=== PATIENT | female | born 1990 | race Caucasian/White ===

== ENCOUNTER 2023-01-22 07:14 | Outpatient (REF) | payer OTHER, SELFPAY ==
[2023-01-22 11:23] LABS: MANUAL DIFF FLAG NO
[2023-01-22 11:45] LABS: Basophils Absolute Auto 0.1 X10*3/uL (0.0-0.2); Basophils Percent Auto 1.3 % (0-2); Eosinophils Absolute Auto 0.1 X10*3/uL (0.0-0.4); Eosinophils Percent Auto 2.1 % (0-4); Hematocrit 35.3 % (37.0-47.0); Hemoglobin 11.4 g/dl (12.0-16.0); Imm Gran Abs Auto 0.01 X10*3/uL (0.00-0.03); Imm Gran Pct Auto 0.2 % (0.0-0.4); Lymphocytes Absolute Auto 1.2 X10*3/uL (1.2-4.9); Lymphocytes Percent Auto 23.6 % (20-40); Mean Corpuscular HGB Conc 32.3 g/dl (31.0-35.0); Mean Corpuscular Hemoglobin 29.5 pg (27.0-33.0); Mean Corpuscular Volume 91.2 fL (80.0-98.0); Mean Platelet Volume 10.3 fL (9.4-12.3); Monocytes Absolute Auto 0.4 X10*3/uL (0.1-1.2); Monocytes Percent Auto 7.1 % (2-11); Neutrophils Absolute Auto 3.4 x10*3/uL (2.0-8.3); Neutrophils Percent Auto 65.7 % (45-73); Platelet Count 298 X10*3/uL (160-400); Red Blood Count 3.87 X10*6/uL (4.20-5.50); Red Cell Distribution Width 12.9 % (11.0-16.0); White Blood Count 5.2 X10*3/uL (4.8-10.8)
[2023-01-22 11:50] LABS: Alanine Aminotransferase 7 U/L (0-31); Albumin Level 4.1 g/dL (3.5-5.0); Alkaline Phosphatase 50 U/L (39-117); Anion Gap 8 (12-20); Aspartate Amino Transferase 11 U/L (5-31); Bilirubin Total 0.6 mg/dL (0.0-1.0); Blood Urea Nitrogen 11 mg/dL (9-16); Calcium 9.1 mg/dL (8.4-10.2); Carbon Dioxide 27 mmol/L (22-29); Chloride 109 mmol/L (96-108); Cholesterol 161 mg/dL; Estimated Glomerular Filt Rate > 60; Glucose Fasting 84 mg/dL (60-99); HDL Cholesterol 65 mg/dL; LDL Cholesterol Calculated 83 mg/dl; Potassium 4.9 mmol/L (3.3-5.1); Sodium 139 mmol/L (135-145); Total Protein 6.4 g/dL (6.5-8.0); Triglycerides 68 mg/dL
== END 2023-01-22 07:15 | disposition home or self-care (01) ==
LOC: HO.HMGCLDS 07:14
PROVIDERS: PCP Internal Medicine; Visit Provider Internal Medicine
DX: Z00.01 Encounter for general adult medical examination with abnormal findings (principal); Z13.220 Encounter for screening for lipoid disorders; M25.531 Pain in right wrist; L70.9 Acne, unspecified
CPT/HCPCS: 36415; 80053; 80061; 85025

== ENCOUNTER 2023-03-31 13:43 | Outpatient (AMB) | payer OTHER, SELFPAY ==
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
[2023-03-31 14:09] VITALS: BP 110/62; PULSE 76; TEMP 35.7; O2SAT 99
== END 2023-03-31 15:14 | disposition home or self-care (01) ==
PROVIDERS: PCP Internal Medicine; Visit Provider Physician Assistant
DX: S39.012A Strain of muscle, fascia and tendon of lower back, initial encounter (principal)
CPT/HCPCS: 99213

== ENCOUNTER 2023-04-09 11:18 | Outpatient (AMB) | payer OTHER, SELFPAY ==
[2023-04-09 11:33] VITALS: BP 108/60; BMI 24.8
--- NOTE | 2023-04-09 11:33 | MHC.OFFVIS ---
Intake Vital Signs 04/09/23 11:33 Height 5 ft 1 in Weight 131 lb 2 oz BMI 24.8 BP 108/60 Blood Pressure Location Rt brachial Position Sitting Intake Visit Reasons: New Patient Annual Building Contractor Required: No Accompanied by: Self / Same As Patient Allergies No Known Allergies Allergy (Verified 04/09/23 11:34) Medication List - Last Reconciled 04/09/23 by [facility] CNM cyclobenzaprine 5 mg PO BID PRN ibuprofen 800 mg PO TID Is last menstrual period known: Yes Last menstrual period: 04/01/23 HPI New Patient Annual HPI Details Patient is here for new parts designer exam. She is in the and previously lived in [place]. She is sexually active for about 7 months with the new her partner. She has a history of 3 miscarriages all under 8 weeks with her previous . She has no particular worries about STIs but is open to testing. She has never had an abnormal Pap smear but it has been a couple of years since she has had 1. She is physically active and works out. She is healthy otherwise she does have a primary care provider. Her last menstrual period was last week and her periods are normal she does get cramping but she finds exercise and running helps. She uses a menstrual cup which she likes very much. Her partner has had a vasectomy so she is not worried about children at this time and at this time she thinks that time of life has past for her. [facility] Surgical History History of breast lump removal Social History Housing: House Alcohol intake: current Alcohol intake frequency: a few times a month Patient Tobacco Use Status: Former Tobacco user e-Cigarette/Vaping Use: Never Used Second Hand Smoke Exposure: No service: Yes Current occupational status: employed Cognitive needs: No Hearing needs: No Vision needs: No Female Reproductive History Menstrual Date of last menstrual period: 04/01/23 Total pregnancies: 3 Number of Living Children: 0 Ab spontaneous: 3 Physical Exam Vital Signs: Last Vital Signs BP 108/60 04/09/23 11:33 BMI result Body Mass Index 24.8 Const General: healthy appearing, comfortable, no acute distress, well developed and alert Nutritional Appearance: average body habitus Orientation/consciousness: patient oriented x3 Limitations: no limitations HEENT Head: Yes normocephalic Neck Neck: Yes normal visual inspection Chest Chest palpation & inspection: normal inspection of the chest Breast/axilla inspection: normal inspection of the breasts and normal inspection of the axillae Breast/axilla palpation: normal palpation of the breasts and normal palpation of the axillae Resp Effort & Inspection: normal respiratory effort GI Inspection: Yes normal to inspection, No Abdominal wall edema and No distended Palpation (GI): Soft to palpation and nontender Other: Vagina is pink and moist with homogeneous whitish discharge. Cervix is tightly closed and nulliparous mobile nontender uterus is midposition nontender adnexa nontender and nonenlarged very very good tone with Kegel. General: Yes bladder normal to palpation External Female Exam: normal external appearance and normal appearance of the urethra Speculum Exam - Vagina: normal appearance of the vagina, normal palpation and normal vaginal discharge Speculum Exam - Cervix: normal appearance of the cervix, normal palpation and nontender Bimanual exam- vagina & uterus: normal bimanual exam, normal palpation, uterine size normal, bladder normal to palpation, consistency normal, normal palpation, uterine mobility normal, uterine shape normal, No Cervical tenderness present, non-tender and no cervical motion tenderness Bimanual Exam- Adnexa, other: normal adnexae, no masses, normal and No adnexal tenderness Neuro General: patient oriented x3 Assessment & Plan Assessment & Plan (1) Encounter for routine gynecological examination: Code(s): Z01.419 - Encounter for gynecological examination (general) (routine) without abnormal findings (2) Cervical cancer screening: Code(s): Z12.4 - Encounter for screening for malignant neoplasm of cervix (3) Breast cancer screening: Code(s): Z12.39 - Encounter for other screening for malignant neoplasm of breast (4) Screen for sexually transmitted diseases: Code(s): Z11.3 - Encounter for screening for infections with a predominantly sexual mode of transmission Plan -----Discussed in this visit the following: healthy balanced diet, regular and consistent exercise, getting recommended health screens, doing the best she can for her particular health concerns, kegel exercises, pap smear screening and followup recommendations, mammography screening and SBE, normal changes in cycles in her life stage--- . Discussed her past history of miscarriages and that if she ever did decide to pursue she would be well advised at this age to go straight to infertility experts. She is not interested at this time. Discussed menstrual care she is very happy using the menstrual cup she shared with me some tips of how it is used and it is serving her well. I did recommend screening for gonorrhea chlamydia trichomoniasis Gardnerella and yeast at this exam I did offer her testing for other STIs via blood work she did get screened in the periodically for HIV and she is not interested or does not think that it is necessary at this time to get testing for hepatitis BC and syphilis. She will seek it out if she feels she needs it. 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 Her next Pap smear if this is normal would be in 5 years. Orders: Orders Bacterial Vaginosis Panel Today Z01.419 - Encounter for gynecological examination (general) (routine) without abnormal findings CT NG by PCR Today Z00.01 - Encounter for general adult medical examination with abnormal findings Pap Smear Today Z01.419 - Encounter for gynecological examination (general) (routine) without abnormal findings Coding Level of Care Code New Pt Prev Care 18-39yr([id number] Diagnoses Encounter for routine gynecological examination Z01.419 Cervical cancer screening Z12.4 Breast cancer screening Z12.39 Screen for sexually transmitted diseases Z11.3
== END 2023-04-09 12:36 | disposition home or self-care (01) ==
PROVIDERS: PCP Internal Medicine; Visit Provider Advanced Practice Midwife
DX: Z01.419 Encounter for gynecological examination (general) (routine) without abnormal findings (principal); Z12.39 Encounter for other screening for malignant neoplasm of breast; Z11.3 Encounter for screening for infections with a predominantly sexual mode of transmission
CPT/HCPCS: 99385

== ENCOUNTER 2023-04-09 11:18 | Outpatient (REF) | payer OTHER, SELFPAY ==
[2023-04-09 18:56] LABS: CT PCR NOT DETECTED (Not Detect.); NG PCR NOT DETECTED (Not Detect.)
[2023-04-10 13:19] LABS: BV Int Neg Control Negative (Negative); BV Int Pos Control Positive (Positive)
[2023-04-16 22:18] LABS: HPV mRNA E6/E7 rflx Not Detected (Not Detected)
== END 2023-04-09 11:19 | disposition home or self-care (01) ==
LOC: HO.LNP 11:18
PROVIDERS: PCP Internal Medicine; Visit Provider Advanced Practice Midwife
DX: Z01.419 Encounter for gynecological examination (general) (routine) without abnormal findings (principal); Z20.2 Contact with and (suspected) exposure to infections with a predominantly sexual mode of transmission; Z79.899 Other long term (current) drug therapy
CPT/HCPCS: 0353U; 87480; 87510; 87624; 87660; 88142

== ENCOUNTER 2023-06-24 08:00 | Outpatient (RCR) | payer OTHER, SELFPAY ==
--- NOTE | 2023-05-07 09:48 | MHC.PT.EP ---
[facility] [place] [facility] [place] Office [place] Office [address] Bobbi Reynolds [address] [phone] F: [phone] F: [phone] F: [phone] F: [phone] Physical Therapy Plan of Care Date of Evaluation: Date of Surgery: Diagnosis: strain of muscle, fascia and tendon of lower back Assessment: Patient is a 33 year old R handed female who presents with s/s consistent with strain of muscle, fascia and tendon of lower back. Pt injured herself lifting on two occasions. 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 Patient past medical history is unremarkable. Current impairments include pain, posture, ROM, strength, body mechanics, activity tolerance and functional mobility. Functional limitations include decreased ability to walk, stand, bend, lift and be active. Patient is motivated with good rehab potential. Skilled PT will address impairments and functional limitations in order to achieve goals. Frequency and Duration: The patient will be seen 1x/week for 5 weeks Short Term Goals: I with HEP - 2 weeks Full AROM pain free - 3 weeks Demo proper lift body mechanics - 3 weeks Fpc Goals: Pain free return to all activities - 5 weeks Oswestry 16% or less - 5 weeks I with symptom management - 5 weeks Treatment Plan: Modalities to reduce pain, spasms and effusion. Manual therapy to restore motion and function. Therapeutic exercise to improve strength and flexibility. Neuromuscular re-education for posture and balance. Therapeutic activities to return to functional activities of daily living. Electronically signed by: Scot Eldridge, PT Please sign and return to therapist. Thank you for your referral.
--- NOTE | 2023-09-29 14:07 | MHC.PT.DC ---
[facility] [place] Office [place] Office [place] [facility] [address] Bobbi Reynolds [address] [phone] F: [phone] F: [phone] F: [phone] F: [phone] Physical Therapy Discharge Report Diagnosis: strain of muscle, fascia and tendon of lower back Date of Surgery: Date of Evaluation: 05/07/23 Date of Discharge: 07/14/23 Treatments to Date: 8 Cancellations to Date: No Shows to Date: Discharge Status: Improved Function Independent with HEP Discharge Summary: 06/24/23: pt progressed well over the course of skilled PT. I with HEP. Full pain free AROM. demos proper lifting mechanics without cues. Oswestry 6%. Pt is appropriate to d/c to HEP at this time. I will keep her chart open 30 days should she have any issues with HEP. This was communicated with her. 06/17/23: pt progressing well with skilled PT. notes no s/s at this time. we will continue 1 more week then likely d/c to HEP. 06/10/23: no new s/s. pt progressing well overall. good carryover with core stab. continue to progress as tolerated. symmetrical innom. 06/03/23: pt had bout of pain last Thursday. we did assess a L ant innom corrected with MET today which we will continue to assess for sustained symmetry. 05/26/23: pt with some lingering s/s and notes her weekend was busy. we tried IFC today in hopes of reducing pain level. assess response NV. 05/20/23: pt has been feeling better overall with good carryover on TAC and body mechanics. we will keep progress as tolerated. 05/13/23: pt progressing with core stab and automobile body customizer awareness. progress as tolerated NV. Patient is a 33 year old R handed female who presents with s/s consistent with strain of muscle, fascia and tendon of lower back. Pt injured herself lifting on two occasions. 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 Patient past medical history is unremarkable. Current impairments include pain, posture, ROM, strength, body mechanics, activity tolerance and functional mobility. Functional limitations include decreased ability to walk, stand, bend, lift and be active. Patient is motivated with good rehab potential. Skilled PT will address impairments and functional limitations in order to achieve goals. Electronically signed by: Scot Eldridge, PT Please sign and return to therapist. Thank you for your referral.
== END 2023-09-29 14:07 | disposition home or self-care (01) ==
LOC: HO.PTCHIC 08:00
PROVIDERS: PCP Internal Medicine; Visit Provider Physician Assistant
DX: S39.012D Strain of muscle, fascia and tendon of lower back, subsequent encounter (principal)
CPT/HCPCS: 97014; 97110; 97112; 97140; 97161

== ENCOUNTER 2024-01-27 10:13 | Outpatient (AMB) | payer OTHER, SELFPAY ==
[2024-01-27 10:17] VITALS: BP 112/68; PULSE 77; O2SAT 99; BMI 23.6
--- NOTE | 2024-01-27 10:17 | A.OFFPC_ITS ---
Vital Signs 01/27/24 10:17 Height 5 ft 1 in Weight 125 lb 2 oz BMI 23.6 BP 112/68 Blood Pressure Location Rt brachial Position Sitting Pulse 77 Pulse Source Pulse Oximeter Pulse Oximetry (%) 99 Oxygen Delivery Method Room Air Intake Visit Reasons: PE Allergies No Known Allergies Allergy (Verified 01/27/24 10:19) Medication List - Last Reconciled 01/27/24 by Zach Winter MD ibuprofen 600 mg PO TID 30 days Tobacco use date assessed: 01/27/24 Dental Screening Dental Screen Date: 01/27/24 Did you have a dental visit in the last 12 months?: Yes Did you have a dental problem in the last 6 months where you did not have access to dental care?: No Was dental information given to patient?: Patient has dentist HPI PE HPI Details Patient is a 34-year-old female came in today for physical examination Patient is complaining of lower back pain off and on She was evaluated fall of last year and was prescribed muscle relaxer and ibuprofen and physical therapy was ordered Patient says that physical therapy did help her. There is no history of fall She is requesting refill on ibuprofen which I have sent for her Also ordered lumbar spine x-ray as a baseline. Patient have [facility] she just need to call in book the appointment Breast exam through them Going over her last labs I see that her hemoglobin is 11.5, patient says that she has heavy menstrual cycle I would recommend iron rich foods, green leafy vegetables, or multivitamin with iron. Lab order placed to be done fasting Follow-up 1 year physical exam [facility] Surgical History History of breast lump removal Social History Housing: House Alcohol intake: current Alcohol intake frequency: a few times a month Patient Tobacco Use Status: Former Tobacco user e-Cigarette/Vaping Use: Never Used Second Hand Smoke Exposure: No service: Yes Current occupational status: employed Cognitive needs: No Hearing needs: No Vision needs: No Questionnaire PHQ-9 Over the last 2 weeks, how often have you been bothered by any of the following problems? 1. Little interest or pleasure in doing things: not at all 2. Feeling down, depressed, or hopeless: not at all 3. Trouble falling or staying asleep, or sleeping too much: several days 4. Feeling tired or having little energy: several days 5. Poor appetite or overeating: not at all 6. Feeling bad about yourself - or that you are a failure or have let yourself or your family down: not at all 7. Trouble concentrating on things, such as reading the newspaper or watching television: not at all 8. Moving or speaking so slowly that other people could have noticed. Or the opposite - being so fidgety or restless that you have been moving around a lot more than usual: not at all 9. Thoughts that you would be better off or of hurting yourself in some way: not at all Total score: 2 Depression Screening Interpretation: Negative Depression Screening Done: Yes 72105 - PHQ-9 Billing: Yes Source: Developed by Drs. Nghia Cruz, Vicki Moctezuma, Kang Garner and colleagues, with an educational rosa from [employer]. Thrive Questionnaire Date Thrive assessed: 01/27/24 I am a: Patient What is your living situation today?: I have a steady place to live Within the past 12 months, did the food you bought not last and you didn't have the money to get more?: Never true Within the past 12 months, did you worry whether your food would run out before you got money to buy more?: Never true Do you have trouble paying for medicines?: No Do you have trouble getting transportation to medical appointments?: No Do you have trouble paying your heating and electricity bill?: No Do you have trouble taking care of your child, family member or friend?: Yes Do you have trouble with day-to-day activities such as bathing, preparing meals, shopping, managing finances, etc.?: No Are you currently unemployed and looking for a job?: No Are you interested in more education?: No Please select the resources that you would like help with: None Currently or been in a relationship where the following occur: no concerns reported THRIVE Score: 0 AUDIT C Alcohol Use Questionnaire (AUDIT-C) 1. How often do you have a drink containing alcohol?: Never 3. How often do you have six or more drinks on one occasion?: Never Total Score: 0 Score Reviewed/Action Taken: Yes JANI-7 AMB Questionnaire JANI-7 Date JANI - 7 assessed: 02/18/23 Feeling nervous, anxious, or on edge: 0 = Not at all Not being able to stop or control worryin = Several days Worrying too much about different things: 1 = Several days Trouble relaxin = Several days Being so restless that it is hard to sit still: 1 = Several days Becoming easily annoyed or irritable: 1 = Several days Feeling afraid as if something awful might happen: 1 = Several days Total JANI-7 score (0-4 normal; 5-9 mild; 10-14 moderate; 15-21 severe): 6 Source: Developed by Drs. Nghia Cruz, Vicki Moctezuma, Kang Garner and colleagues, with an educational rosa from [employer]. JANI-7 Assessment Billing JANI-7 Assessment Tool: JANI-7 Assessment 56322 Review of Systems Const Denies chills, Denies fever(s) and Denies headache(s) Eyes Denies blurry vision ENT Denies headache(s), Denies nasal discharge, Denies nasal obstruction, Denies odynophagia and Denies sinus pain Card Denies chest pain at rest and Denies chest pain with activity Resp Denies cough and Denies hemoptysis GI Denies diarrhea, Denies odynophagia, Denies vomiting and Denies hematemesis Reports as per HPI Musc Denies abnormal gait Skin/Breast Reports as per HPI Neuro Denies Neuro-related abnormal movements, Denies Abnormal speech present, Denies abnormal gait, Denies headache(s) and Denies Sensory deficit (Neuro) Psych Denies mood swings and Denies paranoia Endo Reports as per HPI Yong/Lymph Reports as per HPI Aller/Immun Reports as per HPI Physical exam (Primary Care) Vital Signs: Last Vital Signs Pulse 77 01/27/24 10:17 BP 112/68 01/27/24 10:17 Pulse Ox 99 01/27/24 10:17 Oxygen Delivery Method Room Air 01/27/24 10:17 BMI result Body Mass Index 23.6 Tobacco/Smoking Status: Tobacco use Status Tobacco use date assessed 01/27/24 01/27/24 10:20 Patient Tobacco Use Status Former Tobacco user 01/27/24 10:20 e-Cigarette/Vaping Use Never Used 01/27/24 10:20 PHQ-9: PHQ-9 Score PHQ-9: Total score 2 01/27/24 10:37 Depression Screening Interpretation: Negative Thrive Assessment: Date of Thrive Assessment Date Thrive assessed 01/27/24 01/27/24 10:37 Currently or been in a relationship where the following occur: no concerns reported Const General: cooperative, comfortable and no acute distress Orientation/consciousness: patient oriented x3 HENMT Head: Yes normocephalic and Yes atraumatic Eyes General: appearance normal, both eyes and all related structures Pupils: Equal, round and reactive pupils present EOM: EOMs intact bilaterally Neck Neck: Yes supple and No lymphadenopathy Thyroid: Thyroid normal Lymphatic: no lymphadenopathy noted Resp Effort & Inspection: normal respiratory effort and able to speak in complete sentences Auscultation: clear to auscultation bilaterally Cardio Heart sounds: S1 normal heart sound present and S2 normal heart sound present GI Palpation (GI): Soft to palpation and nontender Auscultation: normal bowel sounds General: Yes no CVA tenderness Back/Spine/Pelvis Back: no CVA tenderness Skin General skin exam: elasticity normal and turgor normal Neuro General: patient oriented x3 and gait normal Cranial nerves: Yes Equal, round and reactive pupils present Speech: No Abnormal speech present Sensory Exam: No Sensory deficit (Neuro) Coordination: tandem gait normal and Romberg test negative Extrem General: Yes normal exam except as noted and No edema Assessment and Plan Assessment & Plan (1) Encounter for general adult medical examination with abnormal findings: Code(s): Z00.01 - Encounter for general adult medical examination with abnormal findings (2) Lower back pain: Code(s): M54.50 - Low back pain, unspecified Qualifiers: Chronicity: chronic Back pain laterality: midline Sciatica presence: without sciatica Qualified Code(s): M54.50 - Low back pain, unspecified; G89.29 - Other chronic pain (3) Anemia, iron deficiency: Code(s): D50.9 - Iron deficiency anemia, unspecified Qualifiers: Iron deficiency anemia type: chronic blood loss Qualified Code(s): D50.0 - Iron deficiency anemia secondary to blood loss (chronic) (4) Heavy periods: Code(s): N92.0 - Excessive and frequent menstruation with regular cycle Qualifiers: Menorrhagia type: with regular cycle Qualified Code(s): N92.0 - Excessive and frequent menstruation with regular cycle Plan Patient is a 34-year-old female came in today for physical examination Patient is complaining of lower back pain off and on She was evaluated fall of last year and was prescribed muscle relaxer and ibuprofen and physical therapy was ordered Patient says that physical therapy did help her. There is no history of fall She is requesting refill on ibuprofen which I have sent for her Also ordered lumbar spine x-ray as a baseline. Patient have [facility] she just need to call in book the appointment Breast exam through them Going over her last labs I see that her hemoglobin is 11.5, patient says that she has heavy menstrual cycle I would recommend iron rich foods, green leafy vegetables, or multivitamin with iron. Lab order placed to be done fasting Follow-up 1 year physical exam Orders: Orders XR lumbar spine 2-3V Today M54.50 - Low back pain, unspecified TSH reflex Free T4 Today D50.9 - Iron deficiency anemia, unspecified, M54.50 - Low back pain, unspecified, N92.0 - Excessive and frequent menstruation with regular cycle, Z00.01 - Encounter for general adult medical examination with abnormal findings Vitamin B12 Today D50.9 - Iron deficiency anemia, unspecified, M54.50 - Low back pain, unspecified, N92.0 - Excessive and frequent menstruation with regular cycle, Z00.01 - Encounter for general adult medical examination with abnormal findings Complete Blood Count Auto Diff Today D50.9 - Iron deficiency anemia, unspecified, M54.50 - Low back pain, unspecified, N92.0 - Excessive and frequent menstruation with regular cycle, Z00.01 - Encounter for general adult medical examination with abnormal findings Comprehensive [place]. Panel Fast Today D50.9 - Iron deficiency anemia, unspecified, M54.50 - Low back pain, unspecified, N92.0 - Excessive and frequent menstruation with regular cycle, Z00.01 - Encounter for general adult medical examination with abnormal findings Lipid Panel Today D50.9 - Iron deficiency anemia, unspecified, M54.50 - Low back pain, unspecified, N92.0 - Excessive and frequent menstruation with regular cycle, Z00.01 - Encounter for general adult medical examination with abnormal findings Vitamin D 25-OH (D2 and D3) Today D50.9 - Iron deficiency anemia, unspecified, M54.50 - Low back pain, unspecified, N92.0 - Excessive and frequent menstruation with regular cycle, Z00.01 - Encounter for general adult medical examination with abnormal findings Ferritin Today D50.9 - Iron deficiency anemia, unspecified, M54.50 - Low back pain, unspecified, N92.0 - Excessive and frequent menstruation with regular cycle, Z00.01 - Encounter for general adult medical examination with abnormal findings Medications: Changed From ibuprofen TID x 3 weeks for left knee pain then PRN thereafter for pain 800 mg PO TID 90 tabs 0RF To ibuprofen TID x 3 weeks for left knee pain then PRN thereafter for pain 600 mg PO TID 30 days 90 tabs 0RF Coding Level of Care Code Est Pt Level 3 (01217) Est Pt Prev Care 18-39y(95471) Diagnoses Encounter for general adult medical examination with abnormal findings Z00.01 Chronic midline low back pain without sciatica M54.50; G89.29 Chronicity: chronic Back pain laterality: midline Sciatica presence: without sciatica Iron deficiency anemia due to chronic blood loss D50.0 Iron deficiency anemia type: chronic blood loss Menorrhagia with regular cycle N92.0 Menorrhagia type: with regular cycle Additional Codes JANI-7 Assessment Billing - JANI-7 Assessment Tool: JANI-7 Assessment [id number] ([id number])
== END 2024-01-27 10:35 | disposition home or self-care (01) ==
PROVIDERS: Visit Provider Internal Medicine
DX: Z00.01 Encounter for general adult medical examination with abnormal findings (principal); M54.50 Low back pain, unspecified; G89.29 Other chronic pain; D50.0 Iron deficiency anemia secondary to blood loss (chronic); N92.0 Excessive and frequent menstruation with regular cycle
CPT/HCPCS: 99213; 99395

== ENCOUNTER 2024-02-05 08:19 | Outpatient (REF) | payer OTHER, SELFPAY ==
--- NOTE | ~2024-02-05 | XR_ITS ---
EXAMINATION: XR LUMBOSACRAL SPINE CLINICAL INFORMATION: Low back pain unspecified. COMPARISON: None available. TECHNIQUE: 3 views of the lumbosacral spine. FINDINGS: Slight rightward curvature of the lumbar spine. Spondylosis with mild loss of disc space height at L5-S1. Minimal grade 1 retrolisthesis of L5 on S1. 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 XR/XR lumbar spine 2-3V IMPRESSION: Spondylosis with mild loss of disc space height at L5-S1.
[2024-02-05 10:13] LABS: MANUAL DIFF FLAG NO
[2024-02-05 10:33] LABS: Basophils Absolute Auto 0.1 X10*3/uL (0.0-0.2); Basophils Percent Auto 1.1 % (0-2); Eosinophils Absolute Auto 0.2 X10*3/uL (0.0-0.4); Eosinophils Percent Auto 2.8 % (0-4); Hematocrit 37.8 % (37.0-47.0); Hemoglobin 12.4 g/dl (12.0-16.0); Imm Gran Abs Auto 0.01 X10*3/uL (0.00-0.03); Imm Gran Pct Auto 0.2 % (0.0-0.4); Lymphocytes Absolute Auto 1.2 X10*3/uL (1.2-4.9); Mean Corpuscular HGB Conc 32.8 g/dl (31.0-35.0); Mean Corpuscular Hemoglobin 30.2 pg (27.0-33.0); Mean Corpuscular Volume 92.2 fL (80.0-98.0); Mean Platelet Volume 10.2 fL (9.4-12.3); Monocytes Absolute Auto 0.4 X10*3/uL (0.1-1.2); Monocytes Percent Auto 8.1 % (2-11); Neutrophils Absolute Auto 3.5 x10*3/uL (2.0-8.3); Neutrophils Percent Auto 64.8 % (45-73); Platelet Count 316 X10*3/uL (160-400); Red Cell Distribution Width 12.4 % (11.0-16.0); White Blood Count 5.4 X10*3/uL (4.8-10.8)
[2024-02-05 11:19] LABS: Alanine Aminotransferase 9 U/L (0-31); Albumin Level 4.6 g/dL (3.5-5.0); Alkaline Phosphatase 42 U/L (39-117); Anion Gap 11 (12-20); Aspartate Amino Transferase 13 U/L (5-31); Bilirubin Total 0.8 mg/dL (0.0-1.0); Blood Urea Nitrogen 13 mg/dL (9-16); Calcium 9.6 mg/dL (8.4-10.2); Carbon Dioxide 25 mmol/L (22-29); Chloride 108 mmol/L (96-108); Cholesterol 185 mg/dL (<200); Estimated Glomerular Filt Rate > 60; Glucose Fasting 87 mg/dL (60-99); HDL Cholesterol 78 mg/dL (>40); LDL Cholesterol Calculated 97 mg/dL (<100); Potassium 4.8 mmol/L (3.3-5.1); Sodium 139 mmol/L (135-145); Total Protein 7.2 g/dL (6.5-8.0); Triglycerides 53 mg/dL (<150)
[2024-02-05 11:34] LABS: Ferritin 77 ng/mL (10-122); TSH reflex Free T4 0.92 uIU/mL (0.32-4.0)
[2024-02-05 13:30] LABS: Vitamin B12 528 pg/mL (200-900)
[2024-02-09 16:28] LABS: Vitamin D 25-OH, D2 <4 ng/mL; Vitamin D 25-OH, D3 47 ng/mL; Vitamin D 25-OH, Total 47 ng/mL (30-100)
== END 2024-02-05 08:20 | disposition home or self-care (01) ==
LOC: HO.HMGCX 08:19
PROVIDERS: PCP Internal Medicine; Visit Provider Internal Medicine
DX: Z00.01 Encounter for general adult medical examination with abnormal findings (principal); Z13.6 Encounter for screening for cardiovascular disorders; M54.50 Low back pain, unspecified; D50.9 Iron deficiency anemia, unspecified; N92.0 Excessive and frequent menstruation with regular cycle
CPT/HCPCS: 36415; 72100; 80053; 80061; 82306; 82607; 82728; 84443; 85025

== ENCOUNTER 2024-03-07 10:08 | Outpatient (AMB) | payer OTHER, SELFPAY ==
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
[2024-03-07 11:01] VITALS: BP 112/66; PULSE 99; O2SAT 100; BMI 23.5
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
== END 2024-03-07 11:46 | disposition home or self-care (01) ==
PROVIDERS: PCP Internal Medicine; Visit Provider Internal Medicine
DX: S71.132A Puncture wound without foreign body, left thigh, initial encounter (principal)
CPT/HCPCS: 99213

== ENCOUNTER 2025-01-31 13:47 | Outpatient (AMB) | payer OTHER, SELFPAY ==
[2025-01-31 13:52] VITALS: BP 120/80; PULSE 88; O2SAT 100; BMI 22.3
--- NOTE | 2025-01-31 13:52 | A.OFFPC_ITS ---
Vital Signs 01/31/25 13:52 Height 5 ft 1 in Weight 118 lb 4 oz BMI 22.3 BP 120/80 Blood Pressure Location Rt brachial Position Sitting Pulse 88 Pulse Source Pulse Oximeter Pulse Oximetry (%) 100 Oxygen Delivery Method Room Air Intake Visit Reasons: PE Allergies No Known Allergies Allergy (Verified 01/31/25 13:52) Medication List - Last Reconciled 01/31/25 by Zach Winter MD ibuprofen 600 mg PO TID 30 days Tobacco use date assessed: 01/31/25 Dental Screening Dental Screen Date: 01/31/25 Did you have a dental visit in the last 12 months?: Yes Did you have a dental problem in the last 6 months where you did not have access to dental care?: No Was dental information given to patient?: Patient has dentist HPI PE HPI Details Physical exam appointment - The patient is a 35-year-old female pr esenting with emotional disturbances c orrelated with her menstrual cycle. - Emotional symptoms primarily manifesti ng as increased emotional lability and stress sensitivity, significantly intensifying around her menstrual cycle. - The patient describes episodes of barbara re emotional distress, including crying, more prevalent during the week preceding menses. - These symptoms, present for some time, have escalated in intensity recently, prompting concerns regarding her emotional well-being. - Acknowledges underlying stressors at h ome, including caregiving responsibilities for a grandparent with Alzheimer's disease. - No previous family history of anxiety or depression, though she reports occupational exposure to [employer] services for the past six years, without perceived additional work stress. - The patient has attempted therapy prev iously but discontinued due to perceived ineffectiveness. Health Maintenance - Recent laboratory tests show normal Vi tamin B12, kidney function, liver function, Vitamin D, and thyroid levels. - No current screening or vaccinations w ere discussed. Medications - Ibuprofen, taken sporadically for back pain Employment - Employed in [employer] services for the past six years. Diagnostic results - Normal Vitamin B12 level - Normal kidney function - Normal liver function - Normal Vitamin D level - Normal thyroid levels Patient Instructions - Refrain from excessive intake of ibupr ofen to avoid kidney issues. - Schedule fasting to complete laborator y tests as ordered. - Commence prescribed medication Lexapro 5 mg for PMDD, starting approximately 7-10 days prior to menses, discontinuing post-menses; contact if adverse effects, including allergic reaction or gastrointestinal issues, arise. - Follow up 2 months telemedicine visit to go over [facility] Lexapro Physical exam 1 year. Review of Systems - General: No fever no chills - Neurological: No headaches no dizzin ess - Ear nose throat: No sore throat no hearing difficulty no ear pain - Cardiovascular: No syncope, no chest pain, no palpitations - Gastrointestinal: No nausea vomiting or diarrhea - Endocrine: No polyuria polydipsia no heat intolerance - Genitourinary: No dysuria - Skin: No new complaints Physical Exam General: Cooperative, healthy appearing, comfortable, no acute distress Orientation: Patient oriented x3 Head: Normal to inspection Ears: Within normal limit visually Nose: Normal external nose present Face and sinus: Normal facial exam Eyes: Appearance normal, extraocular movement intact pupils reactive Neck: Normal visual inspection and supple Respiratory: Normal respiratory effort and able to speak in complete sentences. Clear to auscultation, no stridor Cardiovascular: S1 and S2 RRR Breast exam benign GI: Normal to inspection. Soft to palpation and nontender Skin: Turgor normal, no acute findings Neuro: Patient oriented x3, motor sensory intact, balance intact, tandem pass Extremities: Normal to inspection, no swelling, joints with full range of motion PFSH Surgical History History of breast lump removal Social History Housing: House Alcohol intake: current Alcohol intake frequency: a few times a month Patient Tobacco Use Status: Former Tobacco user e-Cigarette/Vaping Use: Never Used Second Hand Smoke Exposure: No service: Yes Current occupational status: employed Cognitive needs: No Hearing needs: No Vision needs: No Questionnaire PHQ-9 Over the last 2 weeks, how often have you been bothered by any of the following problems? 1. Little interest or pleasure in doing things: several days 2. Feeling down, depressed, or hopeless: several days 3. Trouble falling or staying asleep, or sleeping too much: several days 4. Feeling tired or having little energy: several days 5. Poor appetite or overeating: several days 6. Feeling bad about yourself - or that you are a failure or have let yourself or your family down: several days 7. Trouble concentrating on things, such as reading the newspaper or watching television: several days 8. Moving or speaking so slowly that other people could have noticed. Or the opposite - being so fidgety or restless that you have been moving around a lot more than usual: several days 9. Thoughts that you would be better off or of hurting yourself in some way: not at all Total score: 8 Depression Screening Interpretation: Negative Depression Screening Done: Yes 26700 - PHQ-9 Billing: Yes Source: Developed by Drs. Nghia Cruz, Vicki Moctezuma, Kang Ganrer and colleagues, with an educational rosa from [employer]. Thrive Questionnaire Date Thrive assessed: 01/31/25 I am a: Patient What is your living situation today?: I have a steady place to live Within the past 12 months, did the food you bought not last and you didn't have the money to get more?: Never true Within the past 12 months, did you worry whether your food would run out before you got money to buy more?: Never true Do you have trouble paying for medicines?: No Do you have trouble getting transportation to medical appointments?: No Do you have trouble paying your heating and electricity bill?: No Do you have trouble taking care of your child, family member or friend?: No Do you have trouble with day-to-day activities such as bathing, preparing meals, shopping, managing finances, etc.?: No Are you currently unemployed and looking for a job?: No Are you interested in more education?: No Please select the resources that you would like help with: None Currently or been in a relationship where the following occur: I choose not to answer THRIVE Score: 0 AUDIT C Alcohol Use Questionnaire (AUDIT-C) 1. How often do you have a drink containing alcohol?: 2-4 times a month 2. How many drinks containing alcohol do you have on a typical day when you are drinking?: 1 or 2 3. How often do you have six or more drinks on one occasion?: Never Total Score: 2 Score Reviewed/Action Taken: Yes JANI-7 AMB Questionnaire JANI-7 Date JANI - 7 assessed: 01/31/25 Feeling nervous, anxious, or on edge: 2 = More than half the days Not being able to stop or control worryin = Several days Worrying too much about different things: 1 = Several days Trouble relaxin = Nearly every day Being so restless that it is hard to sit still: 1 = Several days Becoming easily annoyed or irritable: 2 = More than half the days Feeling afraid as if something awful might happen: 1 = Several days Total JANI-7 score (0-4 normal; 5-9 mild; 10-14 moderate; 15-21 severe): 11 Source: Developed by Drs. Nghia Cruz, Vicki Moctezuma, Kang Garner and colleagues, with an educational rosa from [employer]. JANI-7 Assessment Billing JANI-7 Assessment Tool: JANI-7 Assessment 01180 Physical exam (Primary Care) Vital Signs: Last Vital Signs Pulse 88 01/31/25 13:52 BP 120/80 01/31/25 13:52 Pulse Ox 100 01/31/25 13:52 Oxygen Delivery Method Room Air 01/31/25 13:52 BMI result Body Mass Index 22.3 Tobacco/Smoking Status: Tobacco use Status Tobacco use date assessed 01/31/25 01/31/25 13:53 Patient Tobacco Use Status Former Tobacco user 01/31/25 13:53 e-Cigarette/Vaping Use Never Used 01/31/25 13:53 PHQ-9: PHQ-9 Score PHQ-9: Total score 8 01/31/25 14:00 Depression Screening Interpretation: Negative Thrive Assessment: Date of Thrive Assessment Date Thrive assessed 01/31/25 01/31/25 14:00 Currently or been in a relationship where the following occur: I choose not to answer Coding Level of Care Code Est Pt Level 3 (06998) Est Pt Prev Care 18-39y(63470) Diagnoses Encounter for general adult medical examination with abnormal findings Z00.01 PMDD (premenstrual dysphoric disorder) F32.81 Chronic midline low back pain without sciatica M54.50; G89.29 Chronicity: chronic Back pain laterality: midline Sciatica presence: without sciatica Additional Codes JANI-7 Assessment Billing - JANI-7 Assessment Tool: JANI-7 Assessment 51699 ([id number]) PHQ-9 - 17748 - PHQ-9 Billing: Yes ([id number]) Assessment & Plan Assessment & Plan (1) Encounter for general adult medical examination with abnormal findings: Code(s): Z00.01 - Encounter for general adult medical examination with abnormal findings Category: Medical (2) PMDD (premenstrual dysphoric disorder): Code(s): F32.81 - Premenstrual dysphoric disorder Category: Medical (3) Lower back pain: Code(s): M54.50 - Low back pain, unspecified Category: Medical Qualifiers: Chronicity: chronic Back pain laterality: midline Sciatica presence: without sciatica Qualified Code(s): M54.50 - Low back pain, unspecified; G89.29 - Other chronic pain Plan Physical exam appointment - The patient is a 35-year-old female presenting with emotional disturbances correlated with her menstrual cycle. - Emotional symptoms primarily manifesting as increased emotional lability and stress sensitivity, significantly intensifying around her menstrual cycle. - The patient describes episodes of severe emotional distress, including crying, more prevalent during the week preceding menses. - These symptoms, present for some time, have escalated in intensity recently, prompting concerns regarding her emotional well-being. - Acknowledges underlying stressors at home, including caregiving responsibilities for a grandparent with Alzheimer's disease. - No previous family history of anxiety or depression, though she reports occupational exposure to [employer] services for the past six years, without perceived additional work stress. - The patient has attempted therapy previously but discontinued due to perceived ineffectiveness. Health Maintenance - Recent laboratory tests show normal Vitamin B12, kidney function, liver function, Vitamin D, and thyroid levels. - No current screening or vaccinations were discussed. Medications - Ibuprofen, taken sporadically for back pain Employment - Employed in [employer] services for the past six years. Diagnostic results - Normal Vitamin B12 level - Normal kidney function - Normal liver function - Normal Vitamin D level - Normal thyroid levels Patient Instructions - Refrain from excessive intake of ibuprofen to avoid kidney issues. - Schedule fasting to complete laboratory tests as ordered. - Commence prescribed medication Lexapro 5 mg for PMDD, starting approximately 7-10 days prior to menses, discontinuing post-menses; contact if adverse effects, including allergic reaction or gastrointestinal issues, arise. - Follow up 2 months telemedicine visit to go over affective Lexapro Physical exam 1 year. Orders: Orders TSH reflex Free T4 Today F32.81 - Premenstrual dysphoric disorder, Z00.01 - Encounter for general adult medical examination with abnormal findings Complete Blood Count Auto Diff Today F32.81 - Premenstrual dysphoric disorder, Z00.01 - Encounter for general adult medical examination with abnormal findings Comprehensive [place]. Panel Fast Today F32.81 - Premenstrual dysphoric disorder, Z00.01 - Encounter for general adult medical examination with abnormal findings Lipid Panel Today F32.81 - Premenstrual dysphoric disorder, Z00.01 - Encounter for general adult medical examination with abnormal findings Medications: New escitalopram oxalate (Lexapro) 5 mg PO DAILY 30 tabs 0RF Refilled ibuprofen TID x 3 weeks for left knee pain then PRN thereafter for pain 600 mg PO TID 30 days 90 tabs 0RF
--- OUTSIDE RECORDS SUMMARY | 2025-01-31 15:03 | XMS_ITS | Continuity of Care Document ---
Author Name [facility] Organization [facility] Care Team Providers Care Customer Program Manager Name Role Phone [facility] Unavailable Unavailable Problems Combined list of problems from Department of Defense and Veterans Affairs facilities. It does not include entries that were removed or entered in error. Problem Status Onset Date Problem Type Date of Resolution Comments Source Encounter for other general counseling and advice on contraception Inactive 07/09/2020 Condition DoD Overactive bladder Inactive 03/23/2020 Condition DoD Acute cystitis with hematuria Inactive 02/24/2020 Condition DoD Dysuria Inactive 02/24/2020 Condition DoD Other specified counseling Inactive 03/03/2019 Condition DoD Phakomatosis, unspecified Active 03/03/2019 Condition DoD Encounter for immunization Active 03/03/2019 Condition DoD Encounter for screening for malignant neoplasm of cervix Active 03/03/2019 Condition DoD ASSESSMENT, POST-DEPLOYMENT, DOCUMENTED ON [id number] Inactive 09/10/2016 Condition DoD 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 Condition DoD diarrhea Inactive 08/01/2016 Condition DoD COMMON COLD Inactive 09/22/2010 Condition DoD CERUMEN IMPACTION Inactive Condition DoD UPPER RESPIRATORY INFECTION Inactive Condition DoD joint pain in the toes Active Condition [facility] visit for: administrative purpose Inactive Condition [facility] visit for: screening exam for malignant neoplasm cervix Inactive Condition [facility] Gynec[facility] Services Intrauterine Device (IUD) Checking Inactive Condition DoD feared medical condition not demonstrated Active Condition [facility] Intrauterine Device (IUD) Insertion Active Condition [facility] visit for: ears / hearing exam Active Condition DoD Lymph Nodes Enlarged Inactive Condition DoD PHARYNGITIS ACUTE Inactive Condition DoD SINUSITIS ACUTE Inactive Condition DoD OTITIS MEDIA Inactive Condition DoD OTITIS EXTERNA Inactive Condition DoD DERMATITIS Inactive Condition [facility] Contraceptive General Counseling Active Condition DoD MENORRHAGIA Active Condition [facility]nec[facility] Prescrip Of Contracept Agent - Repeat Rx Inactive Condition DoD ACUTE LYMPHADENITIS INGUINAL RIGHT Inactive Condition DoD ANKLE SPRAIN LEFT Inactive Condition DoD INJURY OF LOWER EXTREMITY ANKLE Inactive Condition [facility]nec[facility] Contraceptive Management Inactive Condition [facility]D ROUTINE GYNECOLOGICAL EXAM WITH CERVICAL PAP SMEAR Inactive Condition [facility] visit for: services physical Active Condition DoD Contraceptives Active Condition DoD No Known Problems Active Condition 0117 A-AF-A ROWE-59th [facility] Medications Combined list of outpatient medications from Department of Defense and Veterans Affairs facilities.Medications provided include 1) outpatient medications from the last 15 months, and 2) patient-reported medications. Medication Details Route Status Patient Instructions Prescription Expires Prescription Number Last Dispense Date Ordering Provider Order Date Order Qty Source Acetaminoph en Extra Strength Gelcaps 500 mg 2 tab(s), Oral, every 6 hr, # 30 tab(s), 0 total refill(s ), Acute, Pharmacy : [facility] Oral (given by mouth) Complet ed 11/25/2021 2 2021 30.0 0117A-A F-ASU-5 9 [facility] AMOX TR-POTASSIU M CLAVULANATE (AMOXICILLI N/POTASSIUM CLAV), 500-125 MG, TABLET, ORAL, AUROBINDO PHARM, 20 ea. BOTTLE Active [id number] 2023 14 Pharmac y Data Transac tion Service Facilit y IBU 600 mg oral tablet 1 tab(s), Oral, every 8 hr, # 30 tab(s), 0 total refill(s ), Acute, Pharmacy : [facility] Oral (given by mouth) Complet ed 11/13/20212021 30.0 0117A-A F-ASU-5 9 [facility] IBUPROFEN (ibuprofen) , 600 MG, TABLET, ORAL, TIME-CAP LABS, 500 ea. BOTTLE Active [id number] 2023 90 Pharmac y Data Transac tion Service Facilit y predniSONE 50 mg oral tablet 1 tab(s), Oral, Daily, # 5 tab(s), 0 total refill(s ), Maintena nce, Pharmacy : [facility] Oral (given by mouth) Ordered 2 2021 5.0 0117A-A F-ASU-5 9 [facility] Strattera Oral, every morning, 0 total refill(s ), Maintena nce Oral (given by mouth) Ordered 2021 0117C[facility]ASU-[facility] Allergies, Adverse Reactions, Alerts Combined list of allergies from Department of Defense and Veterans Affairs facilities. It does not include entries that were removed or entered in error. Substance Category Reaction Severity Reaction type Status Date Reported Comments Source No Known Allergies Drug allergy (disorder) active 10/16/2017 [facility] Immunizations Combined list of available immunizations from the Department of Defense and Veterans Affairs facilities. Immunization Series Date Given Administered By Site Reaction Lot Number CVX Code Drug Wire Stockkeeper Status Comments Source influenza virus vaccine, inactivated 2023 YUNIELEILEENTraci QUILESS Shoul rubi, left (delt oid) [id number] Seqirus complet ed influenza virus vaccine, inactivat ed 06/20/24 Recorded [id number] AMDS COVID Vaccine Moderna 2020 [id number] complet ed COVID Vaccine Moderna 01/26/21 Given Ambulat ory Pharmac y COVID Vaccine Moderna 2020 [id number] complet ed COVID Vaccine Moderna 01/26/21 Given Ambulat ory Pharmac y SARS-COV-2 (COVID-19) vaccine, mRNA, spike protein, LNP, preservative free, 100 mcg or 50 mcg dose 2 2020 [id number] 207 Moderna US, Inc. (MOD) complet ed SARS-COV- 2 (COVID-19 ) vaccine, mRNA, spike protein, LNP, preservat joana free, 100 mcg or 50 mcg dose DoD COVID Vaccine Moderna 2020 [id number] 207 complet ed COVID Vaccine Moderna 12/23/20 Given Ambulat ory Pharmac y COVID Vaccine Moderna 2020 [id number] 207 complet ed COVID Vaccine Moderna 12/23/20 Given Ambulat ory Pharmac y SARS-COV-2 (COVID-19) vaccine, mRNA, spike protein, LNP, preservative free, 100 mcg or 50 mcg dose 1 2020 [id number] 207 Moderna [place], Inc. (MOD) complet ed SARS-COV- 2 (COVID-19 ) vaccine, mRNA, spike protein, LNP, preservat joana free, 100 mcg or 50 mcg dose DoD influenza virus vaccine, inactivated 2019 [id number] Seqirus complet ed influenza virus vaccine, inactivat ed 08/17/20 Given Ambulat ory Pharmac y influenza virus vaccine, inactivated 2019 [id number] Seqirus complet ed influenza virus vaccine, inactivat ed 08/17/20 Given Ambulat ory Pharmac y Influenza, injectable, Madin Jacquelin Canine Kidney, quadrivalent with preservative 0 2019 [id number] Seqirus (SEQ) comple t ed Influenza , injectabl e, Madin Vinton Canine Kidney, quadrival ent with preservat joana DoD anthrax vaccine 2019 [id number] 24 Emergent [employer] complet ed anthrax vaccine 04/24/20 Given Ambulat ory Pharmac y anthrax vaccine 2019 [id number] 24 [employer] complet ed anthrax vaccine 04/24/20 Given Ambulat ory Pharmac y anthrax vaccine 5 2019 [id number] 24 [employer] (MIP) complet ed anthrax vaccine DoD varicella virus vaccine 2019 [id number] 21 Merck & Company Inc complet ed varicella virus vaccine 12/16/19 Given Ambulat ory Pharmac y varicella virus vaccine 2019 zzLef t Arm [id number] 21 Merck & Company Inc complet ed varicella virus vaccine 12/16/19 Given Ambulat ory Pharmac y varicella virus vaccine 2 2019 CHERIE CURRIE Y [id number] 21 Merck (MSD) complet ed varicella virus vaccine DoD varicella virus vaccine 2019 [id number] 21 Merck & Company Inc complet ed varicella virus vaccine 10/22/19 Given Ambulat ory Pharmac y typhoid Vi capsular polysaccharid e vac 2019 [id number] 101 sanofi pasteur complet ed typhoid Vi capsular polysacch aride vac 10/22/19 Given Ambulat ory Pharmac y anthrax vaccine 2019 [id number] 24 [employer] complet ed anthrax vaccine 10/22/19 Given Ambulat ory Pharmac y tetanus-dipht h toxoids (Td) adult/adol 2019 [id number] 09 [place] [employer] complet ed tetanus-d iphth toxoids (Td) adult/ado l 10/22/19 Given Ambulat ory Pharmac y typhoid Vi capsular polysaccharid e vac 2019 [id number] 101 sanofi pasteur complet ed typhoid Vi capsular polysacch aride vac 10/22/19 Given Ambulat ory Pharmac y tetanus-dipht h toxoids (Td) adult/adol 2019 [id number] 09 [place] [employer] complet ed tetanus-d iphth toxoids (Td) adult/ado l 10/22/19 Given Ambulat ory Pharmac y anthrax vaccine 2019 [id number] 24 [facility] [employer] complet ed anthrax vaccine 10/22/19 Given Ambulat ory Pharmac y varicella virus vaccine 2019 [id number] 21 Merck & Company Inc complet ed varicella virus vaccine 10/22/19 Given Ambulat ory Pharmac y mumps virus vaccine 0 2019 07 () Not Given mumps virus vaccine DoD tetanus and diphtheria toxoids, adsorbed, preservative free, for adult use (2 Lf of tetanus toxoid and 2 Lf of diphtheria toxoid) 2 2019 [id number] 09 [facility] ([facility]) complet ed tetanus and diphtheri a toxoids, adsorbed, preservat joana free, for adult use (2 Lf of tetanus toxoid and 2 Lf of diphtheri a toxoid) DoD varicella virus vaccine 1 2019 [id number] 21 Merck (MSD) complet ed varicella virus vaccine DoD anthrax vaccine 4 2019 [id number] 24 [facility]) complet ed anthrax vaccine DoD typhoid Vi capsular polysaccharid e vaccine 2 2019 [id number] 101 Sanofi Pasteur (PMC) complet ed typhoid Vi capsular polysacch aride vaccine DoD influenza, injectable, quadrivalent- pf 2018 [id number] 150 Seqirus complet ed influenza , injectabl e, quadrival ent-pf 08/20/19 Given Ambulat ory Pharmac y influenza, injectable, quadrivalent- pf 2018 [id number] 594 150 Seqirus complet ed influenza , injectabl e, quadrival ent-pf 08/20/19 Given Ambulat ory Pharmac y Influenza, injectable, quadrivalent, preservative free 11 2018 [id number] 594 150 Seqirus (SEQ) complet ed Influenza , injectabl e, quadrival ent, preservat joana free DoD influenza, injectable, quadrivalent 2017 [id number] 158 Se[employer]irus complet ed influenza , injectabl e, quadrival ent 08/01/18 Given Ambulat ory Pharmac y influenza, injectable, quadrivalent 2017 [id number] 158 Se[employer]irus complet ed influenza , injectabl e, quadrival ent 08/01/18 Given Ambulat ory Pharmac y influenza, injectable, quadrivalent, contains preservative 10 2017 [id number] 158 Seqirus (SEQ) comple t ed influenza , injectabl e, quadrival ent, contains preservat joana DoD Influenza, inj, MDCK, quadrivalent- pf 2016 [id number] 171 Seqirus complet ed Influenza , inj, MDCK, quadrival ent-pf 08/01/17 Given Ambulat ory Pharmac y Influenza, inj, MDCK, quadrivalent- pf 2016 [id number] 171 Se[employer]irus complet ed Influenza , inj, MDCK, quadrival ent-pf 08/01/17 Given Ambulat ory Pharmac y Influenza, injectable, Madin Vinton Canine Kidney, preservative free, quadrivalent 9 2016 [id number] 171 Seqirus (SEQ) comple t ed Influenza , injectabl e, Madin Vinton Canine Kidney, preservat joana free, quadrival ent DoD anthrax vaccine 2015 [id number] 24 [employer] complet ed anthrax vaccine 09/10/16 Given Ambulat ory Pharmac y anthrax vaccine 2015 [id number] 24 [employer] complet ed anthrax vaccine 09/10/16 Given Ambulat ory Pharmac y anthrax vaccine 3 2015 [id number] 24 [employer] (MIP) complet ed anthrax vaccine DoD influenza, seasonal, injectable 2015 [id number] 1A 141 Seqirus complet ed influenza , seasonal, injectabl e 07/18/16 Given Ambulat ory Pharmac y influenza, seasonal, injectable 2015 [id number] 1A 141 Se[employer]irus complet ed influenza , seasonal, injectabl e 07/18/16 Given Ambulat ory Pharmac y Influenza, seasonal, injectable 8 2015 [id number] [id number] 141 Seqirus (SEQ) complet ed Influenza , seasonal, injectabl e DoD anthrax vaccine 2015 [id number] 24 [employer] complet ed anthrax vaccine 03/14/16 Given Ambulat ory Pharmac y anthrax vaccine 2015 [id number] 24 [employer] complet ed anthrax vaccine 03/14/16 Given Ambulat ory Pharmac y anthrax vaccine 2 2015 [id number] 24 [employer] ([facility]) complet ed anthrax vaccine DoD typhoid Vi capsular polysaccharid e vac 2015 Q8600-2 101 sanofi pasteur complet ed typhoid Vi capsular polysacch aride vac 02/15/16 Given Ambulat ory Pharmac y anthrax vaccine 2015 [id number] 24 [employer] complet ed anthrax vaccine 02/15/16 Given Ambulat ory Pharmac y typhoid Vi capsular polysaccharid e vac 2015 [id number] 1 101 sanofi pasteur complet ed typhoid Vi capsular polysacch aride vac 02/15/16 Given Ambulat ory Pharmac y anthrax vaccine 2015 [id number] 24 [employer] complet ed anthrax vaccine 02/15/16 Given Ambulat ory Pharmac y anthrax vaccine 1 2015 [id number] 24 [employer] ([facility]) complet ed anthrax vaccine DoD typhoid Vi capsular polysaccharid e vaccine 1 2015 [id number] 1 101 Sanofi Pasteur (PMC) complet ed typhoid Vi capsular polysacch aride vaccine DoD influenza, seasonal, injectable-pf 2014 [id number] 140 CSL Behring complet ed influenza , seasonal, injectabl e-pf 06/16/15 Given Ambulat ory Pharmac y influenza, seasonal, injectable-pf 2014 [id number] 140 CSL Behring complet ed influenza , seasonal, injectabl e-pf 06/16/15 Given Ambulat ory Pharmac y Influenza, seasonal, injectable, preservative free 7 2014 [id number] 140 [employer]SL [employer] Inc. (CSL) complet ed Influenza , seasonal, injectabl e, preservat joana free DoD influenza, seasonal, injectable-pf 2013 [id number] 140 Novartis Pharmaceutica complet ed influenza , seasonal, injectabl e-pf 06/17/14 Given Ambulat ory Pharmac y Influenza, seasonal, injectable, preservative free 1 2013 [id number] 140 Novartis Pharmaceutica l Nia. (NOV) complet ed Influenza , seasonal, injectabl e, preservat joana free DoD influenza, seasonal, injectable-pf 2012 [id number] 140 sanofi pasteur complet ed influenza , seasonal, injectabl e-pf 06/22/13 Given Ambulat ory Pharmac y influenza, seasonal, injectable-pf 2012 [id number] 140 sanofi pasteur complet ed influenza , seasonal, injectabl e-pf 06/22/13 Given Ambulat ory Pharmac y Influenza, seasonal, injectable, preservative free 5 2012 [id number] 140 Sanofi Pasteur (PMC) complet ed Influenza , seasonal, injectabl e, preservat joana free DoD measles virus vaccine 0 2012 05 () Not Given measles virus vaccine DoD rubella virus vaccine 0 2012 06 () Not Given rubella virus vaccine DoD influenza virus vaccine, live 2011 [id number] 111 Medimmune Inc comple t ed influenza virus vaccine, live 06/22/12 Given Ambulat ory Pharmac y influenza virus vaccine, live 2011 [id number] 111 Medimmune Inc comple t ed influenza virus vaccine, live 06/22/12 Given Ambulat ory Pharmac y influenza virus vaccine, live, attenuated, for intranasal use 4 2011 [id number] 111 MedImmune, Inc. (MED) complet ed influenza virus vaccine, live, attenuate d, for intranasa l use DoD influenza virus vaccine, live 2010 [id number] 111 Medimmune Inc comple t ed influenza virus vaccine, live 07/01/11 Given Ambulat ory Pharmac y influenza virus vaccine, live 2010 [id number] 111 Medimmune Inc comple t ed influenza virus vaccine, live 07/01/11 Given Ambulat ory Pharmac y influenza virus vaccine, live, attenuated, for intranasal use 3 2010 [id number] 111 MedImmune, Inc. (MED) complet ed influenza virus vaccine, live, attenuate d, for intranasa l use DoD influenza virus vaccine, live 2009 [id number] 111 Medimmune Inc comple t ed influenza virus vaccine, live 07/24/10 Given Ambulat ory Pharmac y influenza virus vaccine, live 2009 [id number] 111 Medimmune Inc comple t ed influenza virus vaccine, live 07/24/10 Given Ambulat ory Pharmac y influenza virus vaccine, live, attenuated, for intranasal use 1 2009 [id number] 111 [employer]. (MED) complet ed influenza virus vaccine, live, attenuate d, for intranasa l use DoD hepatitis A adult vaccine 2009 [id number] 52 GlaxoSmithKli ne complet ed hepatitis A adult vaccine 04/30/10 Given Ambulat ory Pharmac y hepatitis A adult vaccine 2009 [id number] 8BA 52 GlaxoSmithKli ne complet ed hepatitis A adult vaccine 04/30/10 Given Ambulat ory Pharmac y hepatitis A vaccine, adult dosage 2 2009 [id number] 8BA 52 SmithKline (SKB) complet ed hepatitis A vaccine, adult dosage DoD hepatitis A adult vaccine 2009 [id number] 3AA 52 GlaxoSmithKli ne complet ed hepatitis A adult vaccine 09/20/09 Given Ambulat ory Pharmac y hepatitis A adult vaccine 2009 [id number] 3AA 52 GlaxoSmithKli ne complet ed hepatitis A adult vaccine 09/20/09 Given Ambulat ory Pharmac y measles, mumps and rubella virus vaccine 1 2009 03 () Not Given measles, mumps and rubella virus vaccine DoD varicella virus vaccine 1 2009 21 () Not Given varicella virus vaccine DoD hepatitis B vaccine, adult dosage 1 2009 43 () Not Given hepatitis B vaccine, adult dosage DoD hepatitis A vaccine, adult dosage 1 2009 [id number] 3AA 52 SmithKline (SKB) complet ed hepatitis A vaccine, adult dosage DoD tuberculin purified protein derivative 2009 [id number] 96 sanofi pasteur complet ed tuberculi n purified protein derivativ e 09/16/09 Given Ambulat ory Pharmac y Novel influenza-H1N 1-09, injectable 2008 [id number] 1 127 Novartis Pharmaceutica complet ed Novel influenza -[id number], injectabl e 09/13/09 Given Ambulat ory Pharmac y influenza virus vaccine,split 2008 [id number] 1A 15 CSL Behring complet ed influenza virus vaccine,s plit 09/13/09 Given Ambulat ory Pharmac y poliovirus vaccine, inactivated 2008 [id number] 10 sanofi pasteur complet ed polioviru s vaccine, inactivat ed 09/13/09 Given Ambulat ory Pharmac y tetanus, diphtheria, acellular pertu is 2008 [id number] 115 GlaxoSmithKli ne complet ed tetanus, diphtheri a, acellular pertussis 09/13/09 Given Ambulat ory Pharmac y meningococcal A,C,Y,W-135 (MCV4P) 2008 [id number] 114 sanofi pasteur complet ed meningoco ccal A,C,Y,W-1 35 (MCV4P) 09/13/09 Given Ambulat ory Pharmac y meningococcal A,C,Y,W-135 (MCV4P) 2008 [id number] 114 sanofi pasteur complet ed meningoco ccal A,C,Y,W-1 35 (MCV4P) 09/13/09 Given Ambulat ory Pharmac y influenza virus vaccine,split 2008 [id number] 1A 15 CSL Behring complet ed influenza virus vaccine,s plit 09/13/09 Given Ambulat ory Pharmac y poliovirus vaccine, inactivated 2008 [id number] 10 sanofi pasteur complet ed polioviru s vaccine, inactivat ed 09/13/09 Given Ambulat ory Pharmac y Novel influenza-H1N 1-09, injectable 2008 [id number] 1 127 Novartis Pharmaceutica ls complet ed Novel influenza -L6S3-69, injectabl e 09/13/09 Given Ambulat ory Pharmac y tetanus, diphtheria, acellular pertu is 2008 [id number] [facility], diphtheri a, acellular pertussis 09/13/09 Given Ambulat ory Pharmac y poliovirus vaccine, inactivated 1 2008 [id number] 10 Sanofi Pasteur ([facility]) complet ed polioviru s vaccine, inactivat ed DoD influenza virus vaccine, split virus (incl. purified surface antigen)-reti red CODE 1 2008 [id number] 1A 15 [employer] Inc[employer], Inc. (CSL) complet ed influenza virus vaccine, split virus (incl. purified surface antigen)- retired CODE DoD meningococcal polysaccharid e (groups A, C, Y and W-135) diphtheria toxoid conjugate vaccine (MCV4P) 1 2008 [id number] 114 Sanofi Pasteur (PMC) complet ed meningoco ccal polysacch aride (groups A, C, Y and W-135) diphtheri a toxoid conjugate vaccine (MCV4P) DoD tetanus toxoid, reduced diphtheria toxoid, and acellular pertu is vaccine, adsorbed 1 2008 [id number] 9DA [facility] [employer] (SKB) complet ed tetanus toxoid, reduced diphtheri a toxoid, and acellular pertussis vaccine, adsorbed DoD Novel influenza-H1N 1-09, injectable 1 2008 [id number] 1 127 Novartis IfOnly Nia. (NOV) complet ed Novel influenza -O0K0-45, injectabl e DoD Results Combined list of recent chemistry, hematology and other laboratory results from Department of Defense and Veterans Affairs, ranging from 15 months to all on record, depending upon the facility. Order Name Results Value Reference Range Date Interpretation Specimen Comments Source Infectiou s Disease HIV-1/O/2 Non-Reac tive 3 (10/06/24 2:31 PM) 10/06 N Interpretiv e Data: INTERPRETAT ION: This method is a screening procedure for the detection of HIV p24 Antigen and Antibodies to HIV-1, including Group O, and/or HIV-2. NON-REACTIV E: HIV-1 antigen and HIV-1 / HIV-2 antibodies were not detected. No laboratory evidence of HIV infection. A negative test result does not exclude the possibility of exposure to or infection with HIV. HIV antibodies and/or p24 antigen may be undetectabl e in some stages of the infection and in some clinical conditions. If acute HIV infection is suspected, consider submitting another specimen to a reference laboratory for HIV-1 RNA. SCREEN REACTIVE - CONFIRMATIO N TO FOLLOW: Possible presence of HIV-1antibo dies, HIV-2 antibodies and/or HIV-1 p24 antigen. Specimen will reflex to the confirmatio n testing that fulfills the Center for Disease Control and Prevention' s HIV diagnostic algorithm. Refer to [facility] Lab Guide for additional information : [email or web address] x Testing performed by [employer] ce. 5600A-U SAFSACrush on original products EPILAB Miscellan eous Sendouts Repository Sample Received (10/06/24 2:31 PM) 10/06 N 5600A-U RAFIA EPILAB Molecular Infectiou s Disease Streptococc us pyogenes PCR Not Detected (11/15/21 11:02 AM) 11/15 N 0117A-A F-ASU-5 9th [facility] Molecular Infectiou s Disease Influenza B PCR Not Detected 1 (11/11/21 6:17 AM) 11/11 N Interpretiv e Data: Influenza B DECTECTED: Positive test for Influenza B (Influenza B RNA Present) NOT DETECTED: Negative test for Influenza B (No Influenza B RNA Present) INVALID: Presence or absence of Influenza B cannot be determined. If clinically indicated, repeat assay with same sample or, if possible new sample for testing. Limitations : This test is intended to be used for the detection of SARS-CoV-2, Influenza A and Influenza B RNA in nasal and nasopharyng eal swab samples collected in the viral transport systems recommended by the manufacture r for this assay (refer to package insert). Testing of other sample types, improper collection, or mishandling of specimens may lead to inaccurate results. False positive results can occur due to cross-react ivity with respiratory tract organisms. Negative results for Influenza A and Influenza B should be considered Presumptiv e Negative in samples that have a positive SARS-CoV-2 result as competitive inhibition may lead to false negative influenza virus results. If co-infectio n with influenza A or influenza B virus is suspected in samples with a positive SARS-CoV-2 result, the sample should be re-tested with another FDA cleared, approved, or authorized influenza test, if influenza virus detection would change clinical management. Mutations within the target regions of danna r SARS-CoV-2, Influenza A, and Influenza B could affect primer and/or probe binding that results in failure to detect the presence of virus. Disclaimer: This test is only authorized in the [place] for the duration of the declaration that circumstanc es exist justifying the authorizati on of emergency use of in vitro diagnostic tests for detection and/or diagnosis of COVID-19 under Section 564(b)(1) of the Act, 21 U.S.C. ' 360bbb-3(b) (1), unless the authorizati on is terminated or revoked sooner. 0117A-A -U-5 9 [facility] Molecular Infectiou s Disease SARS-CoV-2 PCR Not Detected 4 (11/11/21 6:17 AM) 11/11 N Interpretiv e Data: SARS-CoV-2 DETECTED: Positive test for SARS-CoV-2 (SARS-CoV-2 RNA Present) NOT DETECTED: Negative test for SARS-CoV-2 (No SARS-CoV-2 RNA Present) INVALID: Presence or absence of SARS-CoV-2 cannot be determined. If clinically indicated, repeat assay with same sample or, if possible new sample for testing. 0117A-A -U-5 9 [facility] Molecular Infectiou s Disease Influenza A PCR Not Detected 2 (11/11/21 6:17 AM) 11/11 N Interpretiv e Data: Influenza A DETECTED: Positive test for Influenza A (Influenza A RNA Present) NOT DETECTED: Negative test for Influenza A (No Influenza A RNA Present) INVALID: Presence or absence of Influenza A cannot be determined. If clinically indicated, repeat assay with same sample or, if possible new sample for testing. 0117A-A -U-5 9 [facility] Molecular Infectiou s Disease Reason for Test? Screenin g (11/11/21 6:17 AM) 11/11 N 0117A-A -U-5 9[facility] Molecular Infectiou s Disease Streptococc us pyogenes PCR Not Detected (11/11/21 6:17 AM) 11/11 N 0117A-A -U-5 9[facility] Vital Signs Combined list of inpatient and outpatient Vital Signs from Department of Defense and Veterans Affairs, ranging from 12 months to all on record, depending upon the facility. Vital Sign Value Date Comments Source Temperature Temporal Artery 36.5 Heavenly 11/11/2021 11:58:00 2493W-UP-DOX -59th [facility] Respiratory Rate 18 br/min 11/11/2021 11:58:00 0721T-PT-VXU-59 [facility] Peripheral Pulse Rate 73 bpm 11/11/2021 11:58:00 3683X-UZ-XQQ-59th TUK-WMNPI-Hflgsdru Systolic Blood Pressure 119 mm[Hg] 11/11/2021 11:58:00 2898X-LP-IUE-59th HKR-COVBD-Rlvxgzkd Diastolic Blood Pressure 79 mm[Hg] 11/11/2021 11:58:00 0399E-AC-HGS-59th GPP-REDIC-Tnlwfoos Peripheral Pulse Rate 85 bpm 11/15/2021 16:21:00 5765A-UT-UVO-59th RNN-UCOFQ-Rluxhxub Respiratory Rate 17 br/min 11/15/2021 16:21:00 5375Q-SD-GSW-59th HCL-UBNLR-Elwlpayo Temperature Temporal Artery 36.7 Heavenly 11/15/2021 16:21:00 4425J-HQ-OFR -59th KQO-PZXNI-Rdbnwzdi Systolic Blood Pressure 136 mm[Hg] 11/15/2021 16:21:00 3295P-BC-AXI-59th ULD-KKHSY-Gfzyblvl Diastolic Blood Pressure 85 mm[Hg] 11/15/2021 16:21:00 6702D-GE-FRQ-59th AZW-DSGNY-Ooxsayqa Respiratory Rate 18 br/min 06/02/2022 20:46:00 2104T-WJ-RMD-59th [facility] Mean Arterial Pressure, Calc 89 mm[Hg] 06/02/2022 20:46:00 4716B-UB-ZHG -59th [facility] BP Site Right arm 06/02/2022 20:46:00 0117C -AF-ASU-59th JZK-VODID-Iietgebd Peripheral Pulse Rate 78 bpm 06/02/2022 20:46:00 2778J-FY-RAS-59th ZXZ-CSBDH-Oyfbsgqx Blood Pressure Manual Automatic 06/02/2022 20:46:00 8819X-ZA-XGR-59th PBA-HWYMR-Wgezekkm Temperature Oral 37 Heavenly 06/02/2022 20:46:00 6997E-HK-ADX-59th [facility] Systolic Blood Pressure 114 mm[Hg] 06/02/2022 20:46:00 4459R-ZI-GWK-59th LNO-BTPRV-Hccbwavk Diastolic Blood Pressure 77 mm[Hg] 06/02/2022 20:46:00 7414F-BK-VQH-59th WIO-SFZFI-Lzdlsgil Systolic Blood Pressure 130 mm[Hg] 12/18/2021 17:30:00 4181E-BY-ZXI-59th UVI-JSCWA-Oizvyffz Diastolic Blood Pressure 85 mm[Hg] 12/18/2021 17:30:00 2647O-CU-RKW-59th MWD-RRHKW-Ajimpbfl Blood Pressure Manual Automatic 12/18/2021 17:30:00 2038H-SA-SRB-59th EDV-YWEJD-Evqzbbjb BP Site Right arm 12/18/2021 17:30:00 0117C -AF-ASU-59th TSP-LIDWM-Undzxgwy Mean Arterial Pressure, Calc 100 mm[Hg] 12/18/2021 17:30:00 4490Y-JW-PYR -59th DQD-IMYOW-Jljqeibe Encounters Combined list of: 1) Encounters from Department of Veterans Affairs facilities going backup to the last 18 months, not all VA inpatient encounters are included; 2) Encounters from the Department of Defense facilities going backup to 280 months. Location Location Details Encounter Type Encounter Number Reason For Visit Attending Provider ADM Date DC Date Status Disposition Source [place] [place] [address] OUTPATIENT [id number] -0740 B/C REFILL (320/17 2) PRESTON LAURENT 09/18 Released w/o Limitations [facility] [place] [address]([facility] Claudia Morton d) [employer](Phy sical Exams Section) OUTPATIENT [id number] pha exam ALISHA URIAS 01/23 Released w/o Limitations [employer](P hysical Exams Section ) [employer]([facility]) OUTPATIENT [id number] control refill BHARAT ARVIZU 02/05 Released w/o Limitations [employer]([facility]) [employer]([facility]) TELE CONSULT [id number] SX BASE/LT ANKLE PAIN LEANDRA BECERRA 05/06 Referred for Appointment [employer]([facility]) [employer]([facility]) OUTPATIENT [id number] Ankle pain after running - swollen and bruised CHINO BARAJAS 05/08 Released with Work/Duty Limitations [employer]([facility]) [employer]([facility]) OUTPATIENT [id number] c/o flu sx СВЕТЛАНА HORN 09/20 Sick at Home/Quarter s [employer]([facility]) [employer]([facility]) OUTPATIENT [id number] c/o swollen lump on groin size of weathers christian;pa inful to touch JAVI ARREDONDO Annette 12/09 Released w/o Limitations [employer]([facility]) [facility]) TELE CONSULT [id number] CONTROL REFILL BHARAT ARVIZU 12/26 [facility]) [facility](PHA Cell) OUTPATIENT [id number] PHA TONJA HUANG 01/30 Released w/o Limitations [facility](P [place] Cell) [facility]) OUTPATIENT [id number] poss yeast infecti on, abnorma l menses ZACKERY KEENAN 04/21 Released w/o Limitations [employer]([facility]) [facility]) OUTPATIENT [id number] MENORRH AGIA BHARAT ARVIZU 05/01 Released w/o Limitations [employer]([facility]) [facility] Medical [facility]) TELE CONSULT [id number] Rash on both legs nkda and no new foods clothin g soap or fabric CHINO BARAJAS 05/17 [employer]([facility]) [employer](Lucia stahl [facility] Team E) OUTPATIENT [id number] SINUS PRESSUR E/HEADA [place]/RUN [place] NOSE ZACKERY KEENAN 10/21 Sick at Home/Quarter s [employer](Leeroy cam [facility] Team E) [employer](Phy sical Occupatio nal Section) OUTPATIENT [id number] Notes Entered by: MITCHELL STANLEY 13 Nov 2011 0821 ------- ------- ------- ------- -- OHE - 060A HAWA MAGANA 11/12 Released w/o Limitations [employer](P hysical Occupat ional Section ) [employer]([facility]) OUTPATIENT [id number] mirena iud placeme nt/hcg ordered BHARAT ARVIZU 12/04 Released w/o Limitations [employer]([facility]) [employer]([facility] C_TeamA_A D) TELE CONSULT [id number] Notes Entered by: NITZA MIRANDA 24 Dec 2011 0729 ------- ------- ------- ------- -- After Hours T-MARIYA Rivero 12/23 Referred for Appointment [employer]([facility]_T eamA_AD ) [employer]([facility]) OUTPATIENT [id number] REF FROM [facility] BHARAT ARVIZU 12/23 Released w/o Limitations [employer]([facility]) [employer]) OUTPATIENT [id number] Notes Entered by: WHIT CHOW 04 Mar 2012 1009 ------- ------- ------- ------- -- JAGRUTI CORRIGAN 03/04 Released w/o Limitations [employer]([facility] [employer]) [employer]([facility] C_TeamA_A D) OUTPATIENT [id number] toe injury СВЕТЛАНА HORN 08/09 Released with Work/Duty Limitations [employer]( kdkieran [facility]_T eamA_AD ) [employer]([facility]) OUTPATIENT [id number] Notes Entered by: EMI BURRELL 01 Dec 2012 1028 ------- ------- ------- ------- -- In-proc essing medical record review TONO FUCHS 12/01 Released w/o Limitations [employer]([email or web address] [employer]) OUTPATIENT [id number] ANANTH BOO 03/08 Released w/o Limitations [employer]([facility] [place] [facility]) [employer](Wilson er [facility] Team [place]) TELE CONSULT [id number] Notes Entered by: Wing ALEJANDRO 14 Mar 2013 1234 ------- ------- ------- ------- -- appt line - AD pt Mirena removal SAIGE GALLEGO 03/14 Referred for Appointment [employer](D over [facility] Team Hercule s) [facility] Team [place]) OUTPATIENT [id number] IUD removal ; replace with ANANTH Samuel 03/28 Released w/o Limitations [employer](D over [facility] Team Hercule s) [facility] Team [place]) OUTPATIENT [id number] sore throat, congest ion ANANTH TOUSSAINT 06/10 Released w/o Limitations [employer](D over [facility] Team Hercule s) [facility] Medical Group([facility] Team [place]) OUTPATIENT [id number] 422 ANANTH Lancaster 08/01 Released w/o Limitations [employer](D over [facility] Team Hercule s) [facility] Medical [facility] er [facility] Team [place]) TELE CONSULT [id number] Notes Entered by: HENRY LINCOLN 31 Aug 2013 1234 ------- ------- ------- ------- -- appt line-AD OUTPRO TADEO PRICE 08/31 Other Not Elsewhere Classified [employer](D over [facility] Team Vi krueger) [facility] [place] [address]([facility], [facility]) OUTPATIENT [id number] DISCUSS CONTROL OPTIONS , POSSIBL E NUAMARJIT HANSON 02/16 Released w/o Limitations [facility] [place] [address]([facility], RAFB) [facility] [place] [address]([facility], [facility]) OUTPATIENT [id number] REPEAT PAP REQUEST ED BY CLINIC/ RAFB AMARJIT VILLALOBOS 03/22 Released w/o Limitations [facility] [place] [address]([facility], [facility]) [facility] [place] [address]([facility]) OUTPATIENT [id number] Pre-Etienne cement PE (Swetha) NICOLASA OCHOA W 08/03 Released w/o Limitations [facility] [place] [address]([facility] [place] [address]([facility]) OUTPATIENT [id number] PREDEPL OYMENT/ QATAR/ALESHA AARON 01/07 Released w/o Limitations [facility] [place] [address] OUTPATIENT [id number] Theater Provider 05/21 Sick at Home/Quarter s [facility] Theater Facility OUTPATIENT [id number] Theater Provider 08/01 Released w/o Limitations [facility] Theater Facility OUTPATIENT [id number] Theater Provider 09/10 Released w/o Limitations Theater Facilit y [facility] [place] [address]([facility] E/KRYSTAL,Re id) OUTPATIENT [id number] [facility]#4:5 [id number] 92:WORK S NIGHTS MONIQUEYOUSIF SILVA A 10/13 Released w/o Limitations [facility] [place] [address](S HPE/DRH A,Praveen) [facility] [place] [address](Hea ring Conservat ion,Praveen) OUTPATIENT [id number] Here @0700 ANJU DAY Radha 01/05 Released w/o Limitations [facility] [place] [address](H earing Conserv ation,R moira) [facility] [place] [address]([facility] _Team F) OUTPATIENT [id number] 3 MOLE BEHIND L EAR HAS BECOME BOTHERS OME JOSE ALBERTO JAUREGUI Wing 03/03 Released w/o Limitations [facility] [place] [address](L acand _[place] [facility]_Te am F) [facility] [place] [address]([facility] Team A) OUTPATIENT [id number] 0 MARY Billings 03/22 Released w/o Limitations [facility] [place] [address](L acand [facility] Team A) [facility] [place] [address]([facility], [facility]) OUTPATIENT [id number] 7 blanche Devine GORDON K 04/06 Released w/o Limitations [facility] [place] [address](Vanessa rouse,[facility]) [facility] [place] [address]([facility], [facility]) TELE CONSULT [id number] Notes Entered by: VY EVANS 15 Apr 2019 1701 ------- ------- ------- ------- -- Biopsy Results VY SANTANA 04/15 [facility] [place] [address]([facility]) [facility] [place] [address]([facility] Op_Med Team A,[facility]) TELE CONSULT [id number] Notes Entered by: GINA BLANKENSHIP 01 Nov 2019 0700 ------- ------- ------- ------- -- FCR/RED [place] of hands itching . Tel. [phone] SHERYL EDWARDS CARLOS Wing 11/01 Referred for Appointment [facility] [place] [address](Wing sultana Op_Med Team A,[facility] ) [facility] [place] [address](All ergy, [facility]) OUTPATIENT [id number] Notes Entered by: CHERIE CURRIE 16 Dec 2019 1543 ------- ------- ------- ------- -- MARY WHITE 12/15 Released w/o Limitations [facility] [place] [address]([facility], [facility]) Theater Facility OUTPATIENT [id number] Theater Provider 02/23 Released w/o Limitations [facility] Theater Facility OUTPATIENT [id number] Theater Provider 03/23 Released w/o Limitations [facility] Theater Facility OUTPATIENT [id number] Theater Provider 07/02 Released w/o Limitations [facility] Theater Facility OUTPATIENT [id number] Theater Provider 07/09 Released w/o Limitations Theater Facilit y [facility] [place] [address](Voucher Clerk ecology [facility], [facility]) OUTPATIENT [id number] virtual - discuss fertili MEHNAZ Ramirez 11/30 Released w/o Limitations [facility] [place] [address](G hakeem gy [facility], [facility]) [facility] [place] [address]([facility]h av[facility]al [facility]) OUTPATIENT [id number] in person initial BHOP divorce TOMAS PEGUERO 04/16 Released w/o Limitations [facility] [place] [address](Obdulia parra al [facility]) [facility] [place] [address](Beh avioral [facility]) OUTPATIENT [id number] f/u F2F TOMAS PEGUERO E 05/10 [facility]ased w/o Limitations [facility] [place] [place] [address](B ehavior al [facility]) [place] [address](Beh avioral [facility]) OUTPATIENT [id number] 1 f/u F2F TOMAS PEGUERO E 06/04 Released w/o Limitations [facility] [place] [address](B ehavior al [facility]th [facility]) 8344R-439 AM[facility] Outpatient [id number] BHARAT SHERINE 10/14 Discharge Disposition: Home or Self Care 8344R-4 39 AMDS 8344R-439 AMDS Dental [id number] HARISH SHERYLAMMOND 11/11 Discharge Disposition: Home or Self Care 8344R-4 39 AMDS Procedures Combined list of: 1) Procedures from Department of Veterans Affairs facilities going back up to thelast 18 months, not all VA non-surgical procedures are included; 2) All procedures from the Department of Defense facilities. Procedure Procedure Type Code Date Perfomer Ashwin Sourisaac e Screening papanicolaou smear; obtaining, preparing and conveyance of cervical or vaginal smear to laboratory 03/23/20 19 MARY VASQUEZ [facility] Counseling and discu ion regarding advance directives or end of life care planning and decisions, with patient and/or surrogate (list separately in addition to code for appropriate evaluation and management service) 03/03/20 19 JOSE ALBERTO JAUREGUI [facility] Threshold Audiogram (Pure Tone) Automated Threshold Audiogram (Pure Tone) Automated [id number] 01/06/20 18 ANJU DAY [facility] Internet Med Svc Qual Nonphys Healthcare Prof Estab Patient Internet Med Svc Qual Nonphys Healthcare Prof Estab Patient 29341 10/16/19 18 YOUSIF AMAYA DoD Cervical Culture Chlamydia trachomatis Cervical Culture Chlamydia trachomatis 88469 02/17/20 14 AMARJIT VILLALOBOS DoD Cervical Culture Nei eria gonorrhoeae Cervical Culture Neisseria gonorrhoeae 09400 02/17/20 14 AMARJIT VILLALOBOS [facility] Screening papanicolaou smear; obtaining, preparing and conveyance of cervical or vaginal smear to laboratory 02/17/20 14 AMARJIT VILLALOBOS [facility] Non-Physician Phone Call To Patient/Provider Brief (5-10min) Non-Physician Phone Call To Patient/Provider Brief (5-10min) 52722 08/31/20 13 SAIGE GALLEGO [facility] Gynecologic Services Intrauterine Device (IUD) Removal Gynecologic Services Intrauterine Device (IUD) Removal 80907 03/29/20 13 ANANTH TOUSSAINT [facility] Non-Physician Phone Call To Patient/Provider Brief (5-10min) Non-Physician Phone Call To Patient/Provider Brief (5-10min) 24934 12/24/19 12 MARIYA SPEAR [facility] Screening papanicolaou smear; obtaining, preparing and conveyance of cervical or vaginal smear to laboratory 12/24/19 12 BHARAT ARVIZU [facility] Insertion of levonorgestrel-rel easing intrauterine system 12/05/19 12 BHARAT ARVIZU [facility] Threshold Audiogram (Pure Tone) Threshold Audiogram (Pure Tone) 73940 11/13/19 12 HAWA MAGANA [facility] Surgical Pathology Level IV Breast Biopsy W/o Microsc Eval 05/07/20 10 [facility] SAVAGE AGE 17 [facility] Non-Physician Phone Call To Patient/Provider Brief (5-10min) Non-Physician Phone Call To Patient/Provider Brief (5-10min) 36401 05/06/20 10 LEANDRA BECERRA [facility] Screening papanicolaou smear; obtaining, preparing and conveyance of cervical or vaginal smear to laboratory 02/06/20 10 BHARAT ARVIZU [facility] Vaccines Viral Varicella (Active) Vaccines Viral Varicella (Active) 62322 CHERIE CURRIE Varicella; Series #: 2; 0.5 mL; SC; Left Arm; Mfg: Sigasi; Lot: [id number]; VIS given (Rigoberto: 04/28/2019). [facility] Immunization Administration One Vaccine Immunization Administration One Vaccine 36340 CHERIE CURRIE [facility] Waiver services; not otherwise specified (NOS) MEHNAZ MILNER [facility] Health And Behav A e mt Each 15 Min Initial A e ment Health And Behav Assessmt Each 15 Min Initial Assessment 40369 TOMAS PEGUERO [facility] Health And Behav A e mt Each 15 Min [place] e ment Health And Behav Assessmt Each 15 Min Reassessment 70792 OLINDA TOMAS DIMAS [facility] No data available for this section Ambulato ry Pharmacy Social History Combined list of available smoking, tobacco, and other social history from Department of Defense and Veterans Affairs facilities. Social History Type Response Date Comment [facility] e Sex Representation Female (finding) 07/09/2021 Unknown Organization This section is an empty social history section. [facility] Tobacco Exposure to Secondhand Smoke: No. Never-cigarette user Cigarette use:. Never-other tobacco user (not cigarettes) Other Tobacco use:. Ambulatory Pharmacy Sexual Orientation Ambula tory Pharmacy Gender identity Ambulator y Pharmacy Assessment and Plan Combined list of future care activities from Department of Defense and Veterans Affairs facilities (e.g., assessment and plan notes, appointments, orders, and referrals). Additional future care activities may be listed in the Plan of Care section. Result Assessment and Plan Date Source Assessment and Plan Extracted from:Title : Oral [facility] OV Author: RADHA ELMORE PA-C Date: 06/02/22 1.?Other specified counseling Recommend that Ms. Dickerson complete a medical release of information and return to medical records or the clinic and will have nursing team assist with collection of information.? 01/31/2025 3878I-ZI-GWJ-59th GXE-TJTGQ-Yzivclnq Functional Status Combined list of recent functional and cognitive assessments recorded at Department of Defense and Veterans Affairs (VA).VA Functional Frohna Measurement (FIM) Scale: 1 = Total Assistance (Subject = 0% +), 2 = Maximal Assistance (Subject = 25% +), 3 = Moderate Assistance (Subject = 50% +), 4 = Minimal Assistance (Subject = 75% +), 5 = Supervision, 6 = Modified Frohna (Device), 7 = Complete Frohna (Timely, Safely). Assessment Date/Time Source Assessment Type Assessment Skill Assessment Score Assessment Details No data available for this section
--- OUTSIDE RECORDS SUMMARY | 2025-01-31 15:04 | XMS_ITS | Data Portability ---
Author Organization CHRISTA Roy pati [address] Address [address] [place] [address] Assessment No assessment recorded. Plan of Treatment Reminders Order Date Submit Date Provider Last Modified By Organization Details Last Modified Time Details Appointments None recorded. Lab None recorded. Referral None recorded. Procedures None recorded. Surgeries None recorded. Imaging None recorded. Medication Orders cyclobenzap rine 10 mg tablet 2022 023 [id number], [address] [place], [place], [id number], 14:12:23 meloxicam 7.5 mg tablet 2022 023 [facility] #[id number], [address] [place], [place], [id number], 14:12:24 Patient TargetsNo targets recorded. Patient Instructions Encounter Date Encounter Id Patient Instructions Last Modified By Organization Details Last Modified Time 10/19/2022 [id number] back spasm: care instructions [email or web address] Not available 10/19/2022 14:12:10 back stretches: exercises Not available 10/19/2022 14:12:10 You have been diagnosed with a Psoas muscle spasm. You were prescribed a Muscle relaxant - this may make you drowsy. Do not drive with the medication. Also you only have to take this medication as needed. You do not need to complete the full course. The following are my recommendation to help you with your discomfort. 1. Stretch in the AM and PM - especially when you first wake up. 2. Heating pad to the lower back. 3. No heavy lift and no sports until you are feeling a little better. 4. OK to take Tylenol to help supplement with the pain unless you have an allergy. 5. Stop Smoking if you smoke this can increased lower back pain - this has been proven in studies. If any of the following symptoms develop - you should be seen in the ER. 1. Numbness in your groin 2. Bowel or Bladder incontinence 3. Worsening Pain 4. Blood in urine or stool 5. Fever or vomiting. Thank you for using [facility] [employer], please call if you have any questions or concerns. [email or web address] Not available 10/19/2022 14:12:09 Reason for Referral None Reported. Problems No Known Problems Medical Equipment None Reported. Allergies No known drug allergies Medications Name Sig Start Date Stop Date Status Note LastModified by Organization Details LastModified Time cyclobenzap rine 10 mg tablet Take 1 tablet every 8 hours by oral route. 2022 active Not Available Not Available Not Avai lable benzonatate 200 mg capsule TAKE 1 CAPSULE (ORAL) 3 TIMES PER DAY NEEDED - COUGH FOR 7 DAYS 10/19 completed Not Available Not Available Not Available prednisone 20 mg tablet TAKE 2 TABLET (ORAL) 1 TIME PER DAY FOR 4 DAYS IN THE MORNING WITH FOOD ONLY. 10/19 completed Not Available Not Available Not Available penicillin V potassium 500 mg tablet TAKE 1 TABLET BY MOUTH EVERY 12 HOURS FOR 10 DAYS 10/19 completed Not Available Not Available Not Available meloxicam 7.5 mg tablet Take 1 tablet every day by oral route. 2022 active Not Available Not Available Not Avai lable polymyxin B sulfate 10,000 unit-trimet hoprim 1 mg/mL eye drops APPLY 1-2 DROPS IN THE AFFECTED EYE 4 TIMES PER DAY FOR 7 DAYS 10/19 completed Not Available Not Available Not Available ipratropium bromide 42 mcg (0.06 %) nasal spray USE 2 SPRAYS IN EACH NOSTRIL TWICE DAILY FOR 7 DAYS 10/19 completed Not Available Not Available Not Available amoxicillin 875 mg-potassiu m clavulanate 125 mg tablet TAKE 1 TABLET BY MOUTH EVERY 12 HOURS FOR 7 DAYS 10/19 completed Not Available Not Available Not Available Vitals Date Recorded Body height Body mass index (BMI) Body weight Oxygen saturation Oxygen saturation in Arterial blood by Pulse oximetry Heart rate Respiratory rate Body temperature Systolic blood pressure Diastolic blood pressure Provider Name and Address Organization Details Last Updated DateTime 160.02 cm 22.1 kg/m2 74882.0 5 g 100 % 100 % 74 /min 16 /min 97.3 [degF] 126 mm[Hg] 75 mm[Hg] JR WADSWORTH CHRISTA - [facility] 13:48:44 Social History Question Answer Notes LastModified by Organizat ion Details LastModified Time Tobacco Smoking Status Never Smoker JR WADSWORTH melba [place] - [facility] 10/19/2022 13:46:40 Have You Recently Traveled Abroad? No Information not available 10/19/2022 Sex: Unknown Functional Status Question Answer Note LastModified by Organizat ion Details LastModified Time Do you use any illicit or recreational drugs? No Information not available 10/19/2022 Do you or have you ever used any other forms of tobacco or nicotine? No Information not available 10/19/2022 What is your level of alcohol consumption? None Information not available 10/19/2022 Are you currently employed? Yes Information not available 10/19/2022 Mental Status None recorded. Family History Relationship Description Onset Age of this Age Resolved Age Notes LastModified by Organization Details LastModified Time Father No current problems or disability Not available 10/19 13:46:24 Mother No current problems or disability Not available 10/19 13:46:24 Medical History No medical history recorded. Gynecological History Statement/Question Response Date of LMP 10/18/2022 Obstetrics History GPAL:G 0 P 0 0 0 0 Past Encounters Encounter ID Performer Location Encounter Start Date Encounter Closed Date Diagnosis/Indication Diagnosis SNOMED-CT Code Diagnosis ICD10 Code Diagnosis Note [id number] [address] [facility] [address] [address] 08/04/2022 12:59:27 08/04/2022 15:31:40 [id number] CHRISTA STRATTON [address] [facility] [address] [address] 10/19/2022 11:27:43 10/19/2022 14:14:49 Spasm of back muscles 726401767 M62.830 Psoas Muscle strain/spa sm Health Concerns Section Related Observation LastModified by Organization Detai ls LastModified Time None Recorded Concern Status LastModified by Organization Details LastModified Time None Recorded Advance Directives Directive None Recorded Payers Insurance Date Sequence Insurance Name Policy Number Policy Zapata Covered Member ID Zapata Member ID Guarantor Name 10/19/2022 1 [facility] [place] () Monika Maggie [id number] Monika Maggie Notes Date Note Type Note Provider Name and Address Organization Details Recorded Time 3 text/html Back Pain/Injury UCReported bypatient.source of patient informationInformation obtained from patient Location:lower back; pain is not radiating Quality:tightness;muscle spasms Severity:interference with work Duration:3 days Context:lifting Alleviating Factors:heat; standing Aggravating Factors:bending/squatting;b ending over/standing upNotes:The patient states 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 Progressively worsened over the weekend. Across the back. Feels better to lean back against wall. The patient states bending and twisting equally hurts. A little worse on the left side. No radicular pain. No numbness in the feet or groin area. No trouble urinating. No incontinance with bowel or bladder. No skin changes. CHRISTA STRATTON [address] [place], [address], [place] - [facility] 10/19/2022 14:18:39 OBGyn Episode No OBEpisode recorded.
== END 2025-01-31 14:26 | disposition home or self-care (01) ==
LOC: HO.HMCC 13:48
PROVIDERS: PCP Internal Medicine; Visit Provider Internal Medicine
DX: Z00.01 Encounter for general adult medical examination with abnormal findings (principal); F32.81 Premenstrual dysphoric disorder; M54.50 Low back pain, unspecified; G89.29 Other chronic pain

== ENCOUNTER → 2025-01-31 13:47 | Outpatient (BNVA) | payer OTHER, SELFPAY | PROVIDERS: PCP Internal Medicine; Visit Provider Internal Medicine | DX: Z00.01 Encounter for general adult medical examination with abnormal findings (principal); F32.81 Premenstrual dysphoric disorder; M54.50 Low back pain, unspecified; G89.29 Other chronic pain | CPT/HCPCS: 96127; 99212 ==

== ENCOUNTER 2025-02-03 07:59 | Outpatient (REF) | payer OTHER, SELFPAY ==
[2025-02-03 10:02] LABS: MANUAL DIFF FLAG NO
[2025-02-03 10:12] LABS: Basophils Absolute Auto 0.1 X10*3/uL (0.0-0.2); Basophils Percent Auto 0.8 % (0-2); Eosinophils Absolute Auto 0.1 X10*3/uL (0.0-0.4); Eosinophils Percent Auto 2.3 % (0-4); Hematocrit 36.1 % (37.0-47.0); Hemoglobin 11.9 g/dl (12.0-16.0); Imm Gran Abs Auto 0.02 X10*3/uL (0.00-0.03); Imm Gran Pct Auto 0.3 % (0.0-0.4); Lymphocytes Absolute Auto 1.2 X10*3/uL (1.2-4.9); Lymphocytes Percent Auto 19.5 % (20-40); Mean Corpuscular Hemoglobin 30.7 pg (27.0-33.0); Mean Corpuscular Volume 93.3 fL (80.0-98.0); Mean Platelet Volume 9.5 fL (9.4-12.3); Monocytes Absolute Auto 0.4 X10*3/uL (0.1-1.2); Monocytes Percent Auto 6.7 % (2-11); Neutrophils Absolute Auto 4.3 x10*3/uL (2.0-8.3); Neutrophils Percent Auto 70.4 % (45-73); Platelet Count 330 X10*3/uL (160-400); Red Blood Count 3.87 X10*6/uL (4.20-5.50); Red Cell Distribution Width 12.5 % (11.0-16.0); White Blood Count 6.2 X10*3/uL (4.8-10.8)
[2025-02-03 10:28] LABS: Alanine Aminotransferase 14 U/L (0-31); Albumin Level 4.3 g/dL (3.5-5.0); Alkaline Phosphatase 47 U/L (39-117); Anion Gap 11 (12-20); Aspartate Amino Transferase 20 U/L (5-31); Bilirubin Total 0.4 mg/dL (0.0-1.0); Blood Urea Nitrogen 15 mg/dL (9-16); Calcium 8.9 mg/dL (8.4-10.2); Carbon Dioxide 27 mmol/L (22-29); Chloride 107 mmol/L (96-108); Cholesterol 192 mg/dL (<200); Estimated Glomerular Filt Rate > 60; Glucose Fasting 88 mg/dL (60-99); HDL Cholesterol 76 mg/dL (>40); LDL Cholesterol Calculated 104 mg/dL (<100); Potassium 4.6 mmol/L (3.3-5.1); Sodium 140 mmol/L (135-145); Total Protein 6.5 g/dL (6.5-8.0); Triglycerides 62 mg/dL (<150)
[2025-02-03 10:49] LABS: TSH reflex Free T4 1.11 uIU/mL (0.32-4.0)
== END 2025-02-03 08:00 | disposition home or self-care (01) ==
LOC: HO.HMGCLDS 07:59
PROVIDERS: PCP Internal Medicine; Visit Provider Internal Medicine
DX: Z00.01 Encounter for general adult medical examination with abnormal findings (principal); F32.81 Premenstrual dysphoric disorder; Z13.6 Encounter for screening for cardiovascular disorders
CPT/HCPCS: 36415; 80053; 80061; 84443; 85025

== ENCOUNTER 2025-04-06 07:56 | Outpatient (AMB) | payer OTHER, SELFPAY ==
--- OUTSIDE RECORDS SUMMARY | 2025-04-06 07:58 | XMS_ITS | Data Portability ---
Author Organization CHRISTA Roy pati [address] Address [address] [place] [address] Assessment No assessment recorded. Plan of Treatment Reminders Order Date Submit Date Provider Last Modified By Organization Details Last Modified Time Details Appointments None recorded. Lab None recorded. Referral None recorded. Procedures None recorded. Surgeries None recorded. Imaging None recorded. Medication Orders cyclobenzap rine 10 mg tablet 2022 023 [facility] #[id number], [address] [place], [place], [id number], 14:12:23 meloxicam 7.5 mg tablet 2022 023 [facility] #[id number], [address] [place], [place], [id number], 14:12:24 Patient TargetsNo targets recorded. Patient Instructions Encounter Date Encounter Id Patient Instructions Last Modified By Organization Details Last Modified Time 10/19/2022 [id number] back spasm: care instructions [email or web address] Not available 10/19/2022 14:12:10 back stretches: exercises [email or web address] Not available 10/19/2022 14:12:10 You have been [...] Fever or vomiting. Thank you for using [employer], please call if you have any questions or concerns. [email or web address] Not available 10/19/2022 14:12:09 Reason for Referral [...] height Body mass index (BMI) Body weight Pain severity - 0-10 verbal numeric rating [Score] - Reported Oxygen saturation Oxygen saturation in Arterial blood by Pulse oximetry Heart rate Respiratory rate Body temperature Systolic And Diastolic Provider Name and Address Organization Details Last Updated DateTime 160.02 cm 22.1 kg/m2 61508.0 5 g 8 100 % 100 % 74 /min 16 /min 97.3 [degF] 126/75 mm[Hg] JR WADSWORTH [place] - [facility] 13:48:44 Social History Question Answer Notes LastModified by [employer] Details LastModified Time Tobacco Smoking Status Never Smoker JR reilly, [place] - [facility] 10/19/2022 13:46:40 Have You Recently Traveled Abroad? No Information not available 10/19/2022 Sex: Unknown Functional Status Question Answer Note LastModified by [employer] Details LastModified Time Do you use any [...] SNOMED-CT Code Diagnosis ICD10 Code Diagnosis Note [id number] [facility] [facility] [address] [address] 08/04/2022 12:59:27 08/04/2022 15:31:40 [id number] CHRISTA STRATTON [facility] [address] [address] 10/19/2022 11:27:43 10/19/2022 14:14:49 Spasm of back muscles [id number] M62.830 Psoas Muscle strain/spa sm Health Concerns Section Related Observation LastModified by Organization Detai ls LastModified Time None Recorded Concern Status LastModified by Organization Details LastModified Time None Recorded Advance Directives Directive None Recorded Payers Insurance Date Sequence Insurance Name Policy Number Policy Zapata Covered Member ID Zapata Member ID Guarantor Name 10/19/2022 1 [facility] () Monika Maggie [id number] Monika Maggie Notes Date Note Type Note Provider Name and Address Organization Details Recorded Time 10/19/19 23 text/htm l Back Pain/Injury UCReported by PatientHPIFor quality, patient reportstightnessandmuscle spasms. For severity, patient reportsinterference with work. For aggravating factors, patient reportsbending/squattingandbe nding over/standing up. For source of patient information, patient reportsinformation obtained from patient. For location, patient reportspain is not radiatingandlower back. For duration, patient reports3 days. For context, patient reportslifting. 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
--- NOTE | 2025-04-06 08:33 | MHC.PC.OV ---
Intake Visit Reasons: 2m f/u Allergies No Known Allergies Allergy (Verified 01/31/25 13:52) Medication List - Last Reconciled 04/06/25 by Zach Winter MD escitalopram oxalate (Lexapro) 5 mg PO DAILY ibuprofen 600 mg PO TID 30 days Tobacco use date assessed: 01/31/25 Dental Screening Dental Screen Date: 01/31/25 HPI 2m f/u HPI Details History - The patient is a 35-year-old female presenting with Premenstrual Dysphoric Disorder (PMDD). - She initiated treatment with Lexapro 5 mg to manage PMDD symptoms. - Following the start of medication, she experienced a challenging period due to putting her grandmother into hospice care. - The patient reports adherence to daily medication usage. - She is currently considering an increase in medication dosage due to the ongoing symptoms of PMDD. Medical History: - Premenstrual Dysphoric Disorder (PMDD) - Anemia Medications: - Lexapro 5 mg daily for Premenstrual Dysphoric Disorder (PMDD) Social History: - The patient has been incorporating iron-rich foods into her diet. - She reports using a multivitamin with iron. Diagnostic Results: - Labs: - Hemoglobin: 11.9 g/dL (indicating mild anemia) - Kidney function: Normal - Electrolytes: Normal - Blood sugar: Normal - Liver enzymes: Normal - Cholesterol: Normal - Thyroid function: Normal - Vitamin D: Normal Problem List - Premenstrual Dysphoric Disorder (PMDD) - Mild Anemia Patient Instructions - Increase Lexapro dosage to 10 mg daily, if desired. - Consider iron supplements or a multivitamin with iron to address mild anemia. - Continue with dietary intake of iron-rich foods. - Monitor symptoms, and if 10 mg of Lexapro is insufficient after a few weeks, consult with me for a possible increase to 20 mg. Review of Systems. - General: No fever no chills - Neurological: No headaches no dizziness - Ear nose throat: No sore throat no hearing difficulty no ear pain - Cardiovascular: No syncope, no chest pain, no palpitations - Gastrointestinal: No nausea vomiting or diarrhea PFSH Surgical History History of breast lump removal Social History Housing: House Alcohol intake: current Alcohol intake frequency: a few times a month Patient Tobacco Use Status: Former Tobacco user e-Cigarette/Vaping Use: Never Used Second Hand Smoke Exposure: No service: Yes Current occupational status: employed Cognitive needs: No Hearing needs: No Vision needs: No Questionnaire Thrive Questionnaire Date Thrive assessed: 01/25/25 I am a: Patient What is your living situation today?: I have a steady place to live Within the past 12 months, did the food you bought not last and you didn't have the money to get more?: Never true Within the past 12 months, did you worry whether your food would run out before you got money to buy more?: Never true Do you have trouble paying for medicines?: No Do you have trouble getting transportation to medical appointments?: No Do you have trouble paying your heating and electricity bill?: No Do you have trouble taking care of your child, family member or friend?: No Do you have trouble with day-to-day activities such as bathing, preparing meals, shopping, managing finances, etc.?: No Are you currently unemployed and looking for a job?: No Are you interested in more education?: No Please select the resources that you would like help with: None Currently or been in a relationship where the following occur: I choose not to answer THRIVE Score: 0 JANI-7 AMB Questionnaire JANI-7 Date JANI - 7 assessed: 01/31/25 Source: Developed by Drs. Nghia Cruz, Vicki Moctezuma, Kang Garner and colleagues, with an educational rosa from [employer]. Physical exam (Primary Care) Tobacco/Smoking Status: Tobacco use Status Tobacco use date assessed 01/31/25 04/06/25 08:34 Patient Tobacco Use Status Former Tobacco user 04/06/25 08:34 e-Cigarette/Vaping Use Never Used 04/06/25 08:34 Thrive Assessment: Date of Thrive Assessment Date Thrive assessed 01/25/25 04/06/25 08:34 Currently or been in a relationship where the following occur: I choose not to answer Telehealth Telehealth Telehealth Platform: [facility] Location of provider rendering services: practice address Location of patient: address on file Patient Identification confirmed using: Name, : Yes Telehealth method: video (attempted) Patient verbally consented to treatment: Yes Patient verbally consented to billing insurance company: Yes Patient informed of any privacy concerns related to visit: Yes Minutes spent on Phone/Video with Pt.: 13 Coding Level of Care Code Tele Est Pt Level 3 (23723) Diagnoses Depression, major, recurrent, mild F33.0 Microcytic anemia D50.9 Assessment & Plan Assessment & Plan (1) Depression, major, recurrent, mild: Code(s): F33.0 - Major depressive disorder, recurrent, mild Category: Medical (2) Microcytic anemia: Code(s): D50.9 - Iron deficiency anemia, unspecified Category: Medical Plan History - The patient is a 35-year-old female presenting with Premenstrual Dysphoric Disorder (PMDD). - She initiated treatment with Lexapro 5 mg to manage PMDD symptoms. - Following the start of medication, she experienced a challenging period due to putting her grandmother into hospice care. - The patient reports adherence to daily medication usage. - She is currently considering an increase in medication dosage due to the ongoing symptoms of PMDD. Medical History: - Premenstrual Dysphoric Disorder (PMDD) - Anemia Medications: - Lexapro 5 mg daily for Premenstrual Dysphoric Disorder (PMDD) Social History: - The patient has been incorporating iron-rich foods into her diet. - She reports using a multivitamin with iron. Diagnostic Results: - Labs: - Hemoglobin: 11.9 g/dL (indicating mild anemia) - Kidney function: Normal - Electrolytes: Normal - Blood sugar: Normal - Liver enzymes: Normal - Cholesterol: Normal - Thyroid function: Normal - Vitamin D: Normal Problem List - Premenstrual Dysphoric Disorder (PMDD) - Mild Anemia Patient Instructions - Increase Lexapro dosage to 10 mg daily, if desired. - Consider iron supplements or a multivitamin with iron to address mild anemia. - Continue with dietary intake of iron-rich foods. - Monitor symptoms, and if 10 mg of Lexapro is insufficient after a few weeks, consult with me for a possible increase to 20 mg. Medications: Changed From escitalopram oxalate (Lexapro) 5 mg PO DAILY 30 tabs 0RF To escitalopram oxalate 10 mg PO DAILY 90 tabs 0RF
== END 2025-04-06 11:05 | disposition home or self-care (01) ==
LOC: HO.HMCC 07:56
PROVIDERS: PCP Internal Medicine; Visit Provider Internal Medicine
DX: F33.0 Major depressive disorder, recurrent, mild (principal); D50.9 Iron deficiency anemia, unspecified

== ENCOUNTER 2025-06-07 12:21 | Outpatient (AMB) | payer OTHER, SELFPAY ==
--- NOTE | 2025-06-07 12:40 | MHC.OFFVIS ---
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 has discussed this with PCP Information Interpreted: non-clinical & clinical Youth Career Specialist: Youth Career Specialist Present (Alicia) Accompanied by: Self / Same As Patient Allergies No Known Allergies Allergy (Verified 06/07/25 12:42) Medication List - Last Reconciled 06/07/25 by Parul Ingram LPN escitalopram oxalate 10 mg PO DAILY ibuprofen 600 mg PO TID 30 days Is last menstrual period known: Yes Last menstrual period: 05/25/25 Post menopausal: No Patient : No Do you need a note to return to daycare/school/sports/work: No HPI Comments Details: Patient is a premenopausal woman presenting for annual examination. Program Development Manager concerns: Partner with a vasectomy, interested in reversal, uses a Mirror hormone kit to track her cycles and hormone changes. She is wondering if she is able to have a future . Regular monthly menses. She tries to eat healthy and stays active with exercise. Denies family history of breast, ovarian or colon cancer. Last pap smear 2022, negative. [facility] Surgical History History of breast lump removal Social History Housing: House Alcohol intake: current Alcohol intake frequency: a few times a month Patient Tobacco Use Status: Former Tobacco user e-Cigarette/Vaping Use: Never Used Second Hand Smoke Exposure: No Patient : No service: Yes Current occupational status: employed Cognitive needs: No Hearing needs: No Vision needs: No Female Reproductive History Menstrual Age of Menarche: 14 Date of last menstrual period: 05/25/25 control method: other (valencia has vasectomy) Total pregnancies: 2 Number of Living Children: 0 Ab spontaneous: 2 Date of last pap smear: 04/09/23 History of abnormal pap smear: No Review of Systems Const All systems reviewed & are unremarkable except as noted in HPI and below Reports as per HPI Eyes Reports no additional complaints ENT Reports no additional complaints Card Reports no additional complaints Resp Reports no additional complaints GI Reports as per HPI and Reports no additional complaints Reports as per HPI Musc Reports no additional complaints Skin/Breast Reports as per HPI Neuro Reports no additional complaints Psych Reports no additional complaints Endo Reports no additional complaints Yong/Lymph Reports no additional complaints Aller/Immun Reports no additional complaints Physical Exam Vital Signs: Last Vital Signs BP 114/62 06/07/25 12:47 Const General: cooperative, healthy appearing, no acute distress, well developed and alert Orientation/consciousness: patient oriented x3 HEENT Head: Yes normal to inspection Eyes General: appearance normal, both eyes and all related structures Neck Neck: Yes normal visual inspection Thyroid: Thyroid normal Chest Chest palpation & inspection: normal inspection of the chest and other (no puckering, dimpling, peau de orange, retraction, discharge, masses) Breast/axilla inspection: normal inspection of the breasts Breast/axilla palpation: normal palpation of the breasts Resp Effort & Inspection: normal respiratory effort GI Inspection: Yes normal to inspection Palpation (GI): Soft to palpation Rectal Exam - Female: deferred General: Yes bladder normal to palpation External Female Exam: normal external appearance and normal appearance of the urethra Speculum Exam - Vagina: normal appearance of the vagina, normal palpation and abnormal vaginal discharge (Watery pale yellow) Speculum Exam - Cervix: normal appearance of the cervix and normal palpation Bimanual exam- vagina & uterus: normal bimanual exam, normal palpation, uterine size normal, bladder normal to palpation, normal palpation and non-tender Bimanual Exam- Adnexa, other: no masses Skin General skin exam: no rashes or lesions noted Rashes: no rashes Neuro General: patient oriented x3 Cognition (Neuro): normal cognition Extrem General: Yes normal to inspection Psych Attitude: cooperative Thought process: Normal thought process present Assessment & Plan Assessment & Plan (1) Encounter for routine gynecological examination: Code(s): Z01.419 - Encounter for gynecological examination (general) (routine) without abnormal findings Category: Medical (2) Vaginal discharge: Code(s): N89.8 - Other specified noninflammatory disorders of vagina Plan: Discussed: Current recommendations for pap smears per ASCCP guidelines. Breast awareness and periodic breast exams. Maintain a healthy lifestyle including a well balanced diet and routine exercise. Researching insurance coverage for infertility benefits, call office with provider information so referral can be generated. Not all insurance is cover vasectomy reversals, research providers at perform services and evaluate statistical outcomes. Patient verbalizes understanding and agrees to the plan of care. She was given opportunity to ask questions and all questions were answered to the best of my ability. RTO in one year for annual plastics engineer examination. This note is constructed using voice recognition software. While every effort has been made to ensure accuracy, call person errors may have been included. Plan GC chlamydia and BV panel obtained, await results for final plan of care. The patient expressed understanding and agreement with the plan of care. All of her questions and concerns were addressed to the best of my ability. Coding Level of Care Code Est Pt Prev Care 18-39y(54369) Diagnoses Encounter for routine gynecological examination Z01.419 Vaginal discharge N89.8
[2025-06-07 12:47] VITALS: BP 114/62
== END 2025-06-07 13:20 | disposition home or self-care (01) ==
LOC: HO.HWS 12:21
PROVIDERS: PCP Internal Medicine; Visit Provider Advanced Practice Midwife
DX: Z01.419 Encounter for gynecological examination (general) (routine) without abnormal findings (principal); N89.8 Other specified noninflammatory disorders of vagina
CPT/HCPCS: 99395; 99459

== ENCOUNTER 2025-06-07 12:21 | Outpatient (REF) | payer OTHER, SELFPAY ==
[2025-06-07 16:49] LABS: Bacterial Vaginosis PCR NEGATIVE (Negative); Candida Group PCR DETECTED (Not Detect); Candida glab krusei PCR NOT DETECTED (Not Detect); Trichomonas vaginalis PCR NOT DETECTED (Not Detect)
[2025-06-07 17:18] LABS: CT PCR NOT DETECTED (Not Detect.); NG PCR NOT DETECTED (Not Detect.)
== END 2025-06-07 12:22 | disposition home or self-care (01) ==
LOC: HO.LNP 12:21
PROVIDERS: PCP Internal Medicine; Visit Provider Advanced Practice Midwife
DX: Z01.419 Encounter for gynecological examination (general) (routine) without abnormal findings (principal); N89.8 Other specified noninflammatory disorders of vagina; Z20.2 Contact with and (suspected) exposure to infections with a predominantly sexual mode of transmission
CPT/HCPCS: 81515; 87491; 87591